=== PATIENT | female | born 1945 | race Caucasian/White ===

== ENCOUNTER 2016-05-08 08:00 | Outpatient (CLI) | payer MEDICARE, OTHER | END 2016-05-08 08:01 | disposition home or self-care (01) | DX: N30.01 Acute cystitis with hematuria (principal) ==

== ENCOUNTER 2017-01-17 16:11 | Outpatient (CLI) | payer MEDICARE, OTHER ==
[2017-01-17 16:40] LABS: BASOPHILS % (AUTO) 0.6 %; EOSINOPHILS # (AUTO) 0.1 10^3/uL (0.0-0.7); EOSINOPHILS % (AUTO) 2.5 %; HCT - HEMATOCRIT 37.7 % (37.0-47.0); HGB - HEMOGLOBIN 12.7 g/dL (12.0-16.0); LYMPHOCYTES # (AUTO) 2.2 10^3/uL (1.5-3.5); LYMPHOCYTES % (AUTO) 36.3 %; MEAN CORPUSCULAR HGB CONC 33.7 g/dL (32.0-36.0); MEAN CORPUSCULAR VOLUME 94.9 fL (81.0-99.0); MEAN PLATELET VOLUME 9.4 fL (7.9-10.8); MONOCYTES # (AUTO) 0.5 10^3/uL (0.0-1.0); MONOCYTES % (AUTO) 7.4 %; NEUTROPHILS # (AUTO) 3.2 10^3/uL (1.5-6.6); NEUTROPHILS % (AUTO) 53.2 %; NUCLEATED RED BLOOD CELLS AUTO 0.1 /100WBC; RED BLOOD COUNT 3.97 10^6/uL (4.20-5.40); RED CELL DISTRIBUTION WIDTH 12.9 % (12.0-15.0); UNCORRECTED WHITE BLOOD COUNT 6.1 x10^3/uL; WHITE BLOOD COUNT 6.1 x10^3/uL (4.8-10.8)
[2017-01-17 16:54] LABS: ALBUMIN/GLOBULIN RATIO 1.4 (1.0-2.2); BILIRUBIN,TOTAL 0.4 mg/dL (0.2-1.0); BUN - BLOOD UREA NITROGEN 17 mg/dL (6-20); CALCIUM 9.9 mg/dL (8.5-10.3); CARBON DIOXIDE - CO2 27 mmol/L (21-32); CHLORIDE 104 mmol/L (101-111); CHOLESTEROL 118 mg/dL; CREATININE 0.7 mg/dL (0.4-1.0); GFR - MDRD 83 (>89); GLUCOSE 142 mg/dL (70-100); HDL CHOLESTEROL 39 mg/dL; LDL/HDL RATIO 1.1 (<4.4); POTASSIUM 4.8 mmol/L (3.5-5.0); SODIUM 138 mmol/L (135-145); TOTAL PROTEIN 6.7 g/dL (6.7-8.2); TRIGLYCERIDES 175 mg/dL; VLDL CHOLESTEROL 35 mg/dL
[2017-01-17 17:28] LABS: HEMOGLOBIN A1C 0.62 g/dL
== END 2017-01-17 16:12 | disposition home or self-care (01) ==
LOC: LAB.R 16:11
PROVIDERS: ATTEND Physician Assistant Medical
DX: Z79.899 Other long term (current) drug therapy (principal); E55.9 Vitamin D deficiency, unspecified; E11.9 Type 2 diabetes mellitus without complications; E78.2 Mixed hyperlipidemia; I10 Essential (primary) hypertension; Z11.59 Encounter for screening for other viral diseases; Z72.89 Other problems related to lifestyle; F32.9 Major depressive disorder, single episode, unspecified
CPT/HCPCS: 80053; 80061; 82306; 83036; 84443; 85025; 86803

== ENCOUNTER 2017-02-22 10:02 | Outpatient (CLI) | payer MEDICARE, OTHER ==
--- NOTE | 2017-02-23 16:45 | Mammography Report ---
DIGITAL BILATERAL SCREENING MAMMOGRAM: 02/22/2017 COMPARISON STUDY: Mammogram of 12/21/2015. BREAST DENSITY: The breasts are heterogeneously dense which may decrease the sensitivity of mammography. TECHNIQUE: Routine CC and MLO projections were obtained of the breasts. FINDINGS: Parenchymal tissue within both breasts is heterogeneously dense, which may lower the sensitivity of mammography; however, there are no dominant masses, suspicious microcalcifications, or secondary signs of malignancy. In comparison to the previous studies, there are no significant changes. ASSESSMENT: NO MAMMOGRAPHIC EVIDENCE OF MALIGNANCY. NO SIGNIFICANT INTERVAL CHANGES. RECOMMENDATION: Screening mammography is recommended annually. BIRADS category 1 - negative. STANDARD QUALIFYING STATEMENTS 1. This examination was reviewed with the aid of Computed-Aided Detection (CAD). 2. A negative or benign imaging report should not delay biopsy if clinically suspicious findings are present. Consider surgical consultation if warranted. More than 5% of cancers are not identified by imaging. 3. Dense breasts may obscure an underlying neoplasm. JOB #: [id number] EXT JOB #: [id number] [place]
== END 2017-02-22 10:03 | disposition home or self-care (01) ==
LOC: DI 10:02
PROVIDERS: ATTEND Physician Assistant Medical
DX: Z12.31 Encounter for screening mammogram for malignant neoplasm of breast (principal)
CPT/HCPCS: 77067

== ENCOUNTER 2017-05-07 08:29 | Outpatient (CLI) | payer MEDICARE, OTHER ==
[2017-05-07 13:45] LABS: HB2 TOTAL 13.2 g/dL; HEMOGLOBIN A1C 0.57 g/dL; HEMOGLOBIN A1C % 6.1 % (4.6-6.2)
== END 2017-05-07 08:30 | disposition home or self-care (01) ==
LOC: LAB.R 08:29
PROVIDERS: ATTEND Physician Assistant Medical
DX: E11.9 Type 2 diabetes mellitus without complications (principal); Z79.899 Other long term (current) drug therapy; R94.6 Abnormal results of thyroid function studies
CPT/HCPCS: 82947; 83036; 84443

== ENCOUNTER 2017-05-17 10:59 | Outpatient (CLI) | payer MEDICARE, OTHER ==
[2017-05-17 14:55] LABS: T4 (THYROXINE) 6.36 ug/dL (6.09-12.23)
[2017-05-17 15:02] LABS: FREE T4 (FREE THYROXINE) 0.63 ng/dL (0.58-1.64)
== END 2017-05-17 11:00 | disposition home or self-care (01) ==
LOC: LAB.R 10:59
PROVIDERS: ATTEND Physician Assistant Medical
DX: R94.6 Abnormal results of thyroid function studies (principal)
CPT/HCPCS: 84432; 84436; 84439; 84481; 86800

== ENCOUNTER 2017-05-26 12:25 | Outpatient (CLI) | payer MEDICARE, OTHER ==
--- NOTE | 2017-05-26 16:26 | Ultrasound Report ---
EXAM: THYROID ULTRASOUND EXAM DATE: 05/26/2017 12:58 PM. CLINICAL HISTORY: ELEVATED TSH. COMPARISON: None. TECHNIQUE: Real time sonographic imaging of the thyroid was performed by the scanning manager. Multiple re presentative static images were saved for review. FINDINGS: THYROID GLAND: Right Lobe: 3.2 x 1.6 x 1.3 cm, volume 4 cc. Normal background echotexture. Right Lobe Nodules: Mid lobe colloid cyst 4 mm is noted. Left Lobe: 3.4 x 1.4 x 1.2 cm, volume 3 cc. Normal background echotexture. Left Lobe Nodules: Colloid cyst superior pole 4 mm. Isthmus: 0.2 cm AP. Isthmic Nodules: Colloid cyst 4 mm. LYMPH NODES: No adenopathy demonstrated in the central or lateral compartment. IMPRESSION: Colloid cysts as above measure up to 4 mm. No solid nodules. Management recommendations are based on 2015 [place] [employer] Management Guidelines for A dult Patients with Thyroid Nodules and Differentiated Thyroid Cancer. [facility] Referring Provider Line: [phone] SITE ID: [id number]
== END 2017-05-26 12:26 | disposition home or self-care (01) ==
LOC: DI 12:25
PROVIDERS: ATTEND Physician Assistant Medical
DX: E04.1 Nontoxic single thyroid nodule (principal)
CPT/HCPCS: 76536

== ENCOUNTER 2017-07-03 08:00 | Outpatient (CLI) | payer MEDICARE, OTHER ==
[2017-07-03 18:47] LABS: THYROID STIMULATING HORMONE 3.81 uIU/mL (0.34-5.60)
[2017-07-03 18:49] LABS: FREE T4 (FREE THYROXINE) 0.71 ng/dL (0.58-1.64)
== END 2017-07-03 08:01 ==
LOC: LAB.R 08:00
PROVIDERS: ATTEND Physician Assistant Medical
DX: R94.6 Abnormal results of thyroid function studies (principal); Z79.899 Other long term (current) drug therapy
CPT/HCPCS: 84439; 84443; 84481; 86376

== ENCOUNTER 2017-09-04 08:00 | Outpatient (CLI) | payer MEDICARE, OTHER ==
[2017-09-04 13:19] LABS: HB2 TOTAL 13.1 g/dL; HEMOGLOBIN A1C 0.6 g/dL; HEMOGLOBIN A1C % 6.3 % (4.6-6.2)
== END 2017-09-04 08:01 | disposition home or self-care (01) ==
LOC: LAB.R 08:00
PROVIDERS: ATTEND Physician Assistant Medical
DX: Z79.899 Other long term (current) drug therapy (principal); E11.9 Type 2 diabetes mellitus without complications
CPT/HCPCS: 82947; 83036

== ENCOUNTER 2017-11-27 10:09 | Outpatient (CLI) | payer MEDICARE, OTHER ==
[2017-11-27 10:32] LABS: BASOPHILS % (AUTO) 0.6 %; EOSINOPHILS # (AUTO) 0.2 10^3/uL (0.0-0.7); EOSINOPHILS % (AUTO) 2.5 %; HGB - HEMOGLOBIN 12.4 g/dL (12.0-16.0); LYMPHOCYTES # (AUTO) 1.9 10^3/uL (1.5-3.5); LYMPHOCYTES % (AUTO) 30.5 %; MEAN CORPUSCULAR HEMOGLOBIN 32.1 pg (27.0-31.0); MEAN CORPUSCULAR HGB CONC 34.4 g/dL (32.0-36.0); MEAN CORPUSCULAR VOLUME 93.2 fL (81.0-99.0); MEAN PLATELET VOLUME 8.2 fL (7.9-10.8); MONOCYTES # (AUTO) 0.6 10^3/uL (0.0-1.0); MONOCYTES % (AUTO) 9.1 %; NEUTROPHILS # (AUTO) 3.6 10^3/uL (1.5-6.6); NEUTROPHILS % (AUTO) 57.3 %; PLT - PLATELET COUNT 197 10^3/uL (130-450); RED BLOOD COUNT 3.87 10^6/uL (4.20-5.40); RED CELL DISTRIBUTION WIDTH 13.3 % (12.0-15.0); WHITE BLOOD COUNT 6.3 x10^3/uL (4.8-10.8)
[2017-11-27 10:49] LABS: ALBUMIN 4.1 g/dL (3.2-5.5); ALBUMIN/GLOBULIN RATIO 1.4 (1.0-2.2); ALKALINE PHOSPHATASE 52 IU/L (42-121); ALT ALANINE AMINOTRANSFERASE 31 IU/L (10-60); AST ASPARTATE AMINOTRANSFERASE 29 IU/L (10-42); BILIRUBIN,TOTAL 0.7 mg/dL (0.2-1.0); BUN - BLOOD UREA NITROGEN 20 mg/dL (6-20); CALCIUM 9.8 mg/dL (8.5-10.3); CARBON DIOXIDE - CO2 27 mmol/L (21-32); CHLORIDE 101 mmol/L (101-111); CREATININE 0.8 mg/dL (0.4-1.0); GFR - MDRD 71 (>89); GLUCOSE 147 mg/dL (70-100); SODIUM 136 mmol/L (135-145); TOTAL PROTEIN 7.1 g/dL (6.7-8.2)
[2017-11-27 10:51] LABS: CRP - C-REACTIVE PROTEIN < 1.0 mg/dL (0-1.0)
--- NOTE | 2017-11-27 15:26 | XRAY Report ---
Reason: KNEE JOIN PAIN, LEFT Procedure Date: 11/27/2017 Accession Number: [id number] / [id number] Procedure: XR - Knee 4 View LT CPT Code: FULL RESULT: EXAM: LEFT KNEE RADIOGRAPHY EXAM DATE: 11/27/2017 10:32 AM. CLINICAL HISTORY: KNEE JOIN PAIN, LEFT. COMPARISON: None. TECHNIQUE: 4 views. FINDINGS: Bones: No fractures or bone lesions. Joints: There is a small effusion. Soft Tissues: No soft tissue swelling. IMPRESSION: Effusion. No acute bone findings. [facility]
== END 2017-11-27 10:10 | disposition home or self-care (01) ==
LOC: LAB 10:09
PROVIDERS: ATTEND Physician Assistant Medical
DX: M25.562 Pain in left knee (principal); M25.462 Effusion, left knee; R10.32 Left lower quadrant pain
CPT/HCPCS: 36415; 80053; 85025; 85651; 86140

== ENCOUNTER 2017-11-28 09:43 | Outpatient (CLI) | payer MEDICARE, OTHER ==
[2017-11-28] MEDS ORDERED: IOPAMIDOL-300 50 ML VIAL ONE ×2 (09:49→10:05)
[2017-11-28] MEDS ORDERED: IOPAMIDOL-300 100 ML VIAL ONE (10:05)
[2017-11-28] MEDS ORDERED: IOPAMIDOL-300 100 ML VIAL IVP ONE (11:15)
[2017-11-28] MEDS ORDERED: IOPAMIDOL-300 50 ML VIAL PO ONE (11:15)
--- NOTE | 2017-11-28 15:18 | CT Report ---
Reason: ABDOMINAL PAIN, LOWER LEFT QUADRANT Procedure Date: 11/28/2017 Accession Number: [id number] Procedure: CT - Abdomen/Pelvis W/ CPT Code: FULL RESULT: EXAM: CT ABDOMEN AND PELVIS EXAM DATE: 11/28/2017 11:11 AM. CLINICAL HISTORY: ABDOMINAL PAIN, LOWER LEFT QUADRANT. COMPARISONS: None. TECHNIQUE: Routine helical CT imaging was performed through the abdomen and pelvis. IV contrast: 100 cc Isovue-300. Enteric contrast: Yes. Reconstructions: Coronal and sagittal. In accordance with CT protocol optimization, one or more of the following dose reduction techniques were utilized for this exam: automated exposure control, adjustment of mA and/or KV based on patient size, or use of iterative reconstructive technique. FINDINGS: Lung Bases: Unremarkable. Liver: Normal contour. No masses. Gallbladder/Bile Ducts: Unremarkable. Spleen: 5 mm low attenuating focus in the spleen is too small to characterize. Pancreas: Normal. Adrenal Glands: Normal. Kidneys: Subcentimeter low attenuating foci in the right kidney are too small to characterize. 4.0 cm, 21 HU, lower pole left renal cyst appears simple, apart from slightly enhancing rim. Mild bilateral perinephric stranding is nonspecific. Peritoneal Cavity/Bowel: No free fluid, free air or adenopathy. No masses or acute inflammatory process. There are colon diverticula without evidence of diverticulitis. Pelvic Organs: Normal. The bladder and visualized pelvic organs are within normal limits. Vasculature: No aneurysms or other significant abnormality. Bones: No bone lesions. IMPRESSION: Left renal cyst has a simple appearance, apart from a slight enhancing rim. I would classify this as a Bosniak 2F cyst, and recommend follow-up evaluation, for example in 6 months. If, however, the patient has left flank pain it would be difficult to completely exclude an abscess. Correlate clinically. Despite the patient's symptoms there is no evidence of diverticulitis. [facility]
== END 2017-11-28 09:44 | disposition home or self-care (01) ==
LOC: DI 09:43
PROVIDERS: ATTEND Physician Assistant Medical
DX: N28.1 Cyst of kidney, acquired (principal); R10.32 Left lower quadrant pain
CPT/HCPCS: 74177; Q9967

== ENCOUNTER 2017-11-29 14:39 | Outpatient (CLI) | payer MEDICARE, OTHER ==
[2017-11-29 17:35] LABS: BILIRUBIN,URINE NEGATIVE (NEGATIVE); GLUCOSE, URINE (UA) NEGATIVE (NEGATIVE); KETONES,URINE (UA) NEGATIVE (NEGATIVE); LEUKOCYTE ESTERASE, URINE NEGATIVE (NEGATIVE); NITRITE,URINE NEGATIVE (NEGATIVE); OCCULT BLOOD,URINE NEGATIVE (NEGATIVE); PROTEIN,URINE NEGATIVE (NEGATIVE); UROBILINOGEN,URINE 0.2 (NORMAL) E.U./dL (NORMAL)
[2017-11-29 17:46] LABS: CLARITY,URINE CLEAR (CLEAR)
== END 2017-11-29 14:40 | disposition home or self-care (01) ==
LOC: LAB.R 14:39
PROVIDERS: ATTEND Physician Assistant Medical
DX: N28.1 Cyst of kidney, acquired (principal); R10.32 Left lower quadrant pain
CPT/HCPCS: 81001; 81003; 87086

== ENCOUNTER 2018-01-23 09:20 | Outpatient (CLI) | payer MEDICARE, OTHER ==
[2018-01-23 17:52] LABS: HB2 TOTAL 13.9 g/dL; HEMOGLOBIN A1C 0.65 g/dL; HEMOGLOBIN A1C % 6.4 % (4.6-6.2)
[2018-01-23 17:55] LABS: CHOLESTEROL 121 mg/dL; HDL CHOLESTEROL 40 mg/dL; LDL CHOLESTEROL,CALCULATED 21 mg/dL; LDL/HDL RATIO 0.5 (<4.4); VLDL CHOLESTEROL 60 mg/dL
== END 2018-01-23 09:21 | disposition home or self-care (01) ==
LOC: LAB.R 09:20
PROVIDERS: ATTEND Physician Assistant Medical
DX: E55.9 Vitamin D deficiency, unspecified (principal); Z79.899 Other long term (current) drug therapy; E11.9 Type 2 diabetes mellitus without complications; E78.2 Mixed hyperlipidemia; R94.6 Abnormal results of thyroid function studies
CPT/HCPCS: 80061; 82306; 83036; 83721; 84443

== ENCOUNTER 2018-02-26 14:10 | Outpatient (CLI) | payer MEDICARE, OTHER ==
--- NOTE | 2018-02-27 08:38 | Mammography Report ---
Reason: MAMMOGRAPHIC SCREENING FOR BREAST CANCER Procedure Date: 02/26/2018 Accession Number: [id number] / [id number] Procedure: [facility] - Screening Mammo w/Johnny CPT Code: FULL RESULT: EXAM: Screening Mammo w/Johnny DATE: 02/26/2018 3:00 PM CLINICAL HISTORY: Screening encounter. History of early menses and history of breast reduction approximately 20 years ago. TECHNIQUE: Bilateral CC and MLO views were obtained. COMPARISON: 02/22/2017 through 09/24/2013. FINDINGS: The breasts demonstrate scattered fibroglandular densities bilaterally. Coarse typically benign calcifications are identified bilaterally. Postsurgical changes are seen in both breasts, typically benign. No suspicious masses, clustered microcalcifications, or regions of architectural distortion are identified. IMPRESSION: Benign findings RECOMMENDATION: Routine annual screening unless otherwise clinically indicated. BIRADS CATEGORY 2: Benign findings STANDARD QUALIFYING STATEMENTS: 1. This examination was not reviewed with the aid of Computer-Aided Detection (CAD). 2. A negative or benign imaging report should not preclude biopsy if clinically suspicious findings are present. 3. Dense breasts may obscure an underlying neoplasm. 4. This examination was reviewed with the aid of 3D breast imaging (tomosynthesis).
== END 2018-02-26 14:11 | disposition home or self-care (01) ==
LOC: DI 14:10
PROVIDERS: ATTEND Physician Assistant Medical
DX: Z12.31 Encounter for screening mammogram for malignant neoplasm of breast (principal)
CPT/HCPCS: 77063; 77067

== ENCOUNTER 2018-02-26 14:11 | Outpatient (CLI) | payer MEDICARE, OTHER ==
--- NOTE | 2018-02-27 09:04 | DEXA Report ---
Reason: POSTMENOPAUSAL Procedure Date: 02/26/2018 Accession Number: [id number] / [id number] Procedure: DEX - Dexa Spine and/or Hip CPT Code: FULL RESULT: EXAM: Dexa Spine and/or Hip DATE: 02/26/2018 2:47 PM CLINICAL HISTORY: POSTMENOPAUSAL TECHNIQUE: Dual energy x-ray absorptiometry (DXA) was performed on a Early[employer] System. Regions measured are the AP Spine, femoral neck, and if needed forearm. COMPARISON: None. In accordance with the International Society for Clinical Densitometry (ISCD) guidelines, data from previous exams may be reanalyzed using current recommendations and techniques. This is done to allow a more accurate basis for comparison with the current study. FINDINGS: The data for the lumbar spine is as follows: BMD (g/cm/cm) T-SCORE Z-SCORE REGION L1 1.398 2.2 3.7 L2 1.311 0.9 2.4 L3 1.371 1.4 2.9 L4 1.429 1.9 3.4 TOTAL 1.382 1.7 3.2 NOTE: All evaluable vertebrae are used for classification The data for the hip is as follows: BMD (g/cm/cm) T-SCORE Z-SCORE REGION Neck 0.946 -0.7 1.0 TOTAL 1.037 0.2 1.6 NOTE: The femoral neck or total proximal femur, whichever is lowest, is used for classification. IMPRESSION: THE WHO CLASSIFICATION BASED ON THE INTERNATIONAL REFERENCE STANDARD IS NORMAL. THE FRACTURE RISK IS NOT INCREASED. RECOMMENDATION: Patients with diagnosis of osteoporosis or osteopenia should have regular bone mineral density assessment. For those eligible for Medicare, routine testing is allowed once every 2 years. Testing frequency can be increased for patients who have rapidly progressing disease or for those who are receiving medical therapy to restore bone mass. COMMENT: World Health Organization (WHO) definitions for osteoporosis and osteopenia: NORMAL BMD: T-score at -1.0 or higher, fracture risk is low OSTEOPENIA BMD: T-score between -1.0 and -2.5, fracture risk is increased. OSTEOPOROSIS BMD: T-score at -2.5 or lower, fracture risk is high. National Osteoporosis Foundation recommends: 1. Obtain adequate dietary calcium (at least 1200 mg per day) and vitamin D (400-800 international units per day). 2. Participate, as appropriate, in regular weightbearing and muscle-strengthening exercise. 3. Avoid tobacco use and reduce alcohol and caffeine intake. 4. For more detailed information see the website at www.NOF.org.
== END 2018-02-26 14:12 | disposition home or self-care (01) ==
LOC: DI 14:11
PROVIDERS: ATTEND Physician Assistant Medical
DX: Z78.0 Asymptomatic menopausal state (principal)
CPT/HCPCS: 77080

== ENCOUNTER 2018-05-08 08:00 | Outpatient (CLI) | payer MEDICARE, OTHER ==
[2018-05-08 14:08] LABS: HB2 TOTAL 14.1 g/dL; HEMOGLOBIN A1C 0.71 g/dL; HEMOGLOBIN A1C % 6.8 % (4.6-6.2)
== END 2018-05-08 23:59 | disposition home or self-care (01) ==
LOC: LAB.R 08:00
PROVIDERS: ATTEND Physician Assistant Medical
DX: E11.9 Type 2 diabetes mellitus without complications (principal); Z79.899 Other long term (current) drug therapy
CPT/HCPCS: 82947; 83036

== ENCOUNTER 2018-10-02 09:34 | Outpatient (CLI) | payer MEDICARE, OTHER ==
[2018-10-02 10:02] LABS: BASOPHILS # (AUTO) 0.1 10^3/uL (0.0-0.1); BASOPHILS % (AUTO) 0.8 %; EOSINOPHILS # (AUTO) 0.2 10^3/uL (0.0-0.7); EOSINOPHILS % (AUTO) 2.6 %; HGB - HEMOGLOBIN 12.3 g/dL (12.0-16.0); LYMPHOCYTES # (AUTO) 1.6 10^3/uL (1.5-3.5); LYMPHOCYTES % (AUTO) 25.7 %; MEAN CORPUSCULAR HEMOGLOBIN 31.9 pg (27.0-31.0); MEAN CORPUSCULAR HGB CONC 33.3 g/dL (32.0-36.0); MEAN CORPUSCULAR VOLUME 95.8 fL (81.0-99.0); MEAN PLATELET VOLUME 10.3 fL (7.9-10.8); MONOCYTES # (AUTO) 0.5 10^3/uL (0.0-1.0); MONOCYTES % (AUTO) 7.7 %; NEUTROPHILS # (AUTO) 3.8 10^3/uL (1.5-6.6); NEUTROPHILS % (AUTO) 62.2 %; PLT - PLATELET COUNT 170 10^3/uL (130-450); RED BLOOD COUNT 3.85 10^6/uL (4.20-5.40); RED CELL DISTRIBUTION WIDTH 13.1 % (12.0-15.0); WHITE BLOOD COUNT 6.1 x10^3/uL (4.8-10.8)
[2018-10-02 10:20] LABS: CALCIUM 9.9 mg/dL (8.5-10.3); CREATININE 0.8 mg/dL (0.4-1.0)
[2018-10-02 10:33] LABS: HB2 TOTAL 13.6 g/dL; HEMOGLOBIN A1C 0.68 g/dL; HEMOGLOBIN A1C % 6.7 % (4.6-6.2)
== END 2018-10-02 09:35 | disposition home or self-care (01) ==
LOC: LAB 09:34
PROVIDERS: ATTEND Family Medicine
DX: E11.9 Type 2 diabetes mellitus without complications (principal); I10 Essential (primary) hypertension; K22.70 Barrett's esophagus without dysplasia; K21.9 Gastro-esophageal reflux disease without esophagitis
CPT/HCPCS: 36415; 80048; 83036; 85025

== ENCOUNTER 2019-09-22 09:10 | Outpatient (CLI) | payer MEDICARE, OTHER ==
[2019-09-22 09:39] LABS: BASOPHILS # (AUTO) 0.1 10^3/uL (0.0-0.1); BASOPHILS % (AUTO) 0.9 %; EOSINOPHILS # (AUTO) 0.2 10^3/uL (0.0-0.7); HGB - HEMOGLOBIN 12.4 g/dL (12.0-16.0); LYMPHOCYTES # (AUTO) 1.7 10^3/uL (1.5-3.5); LYMPHOCYTES % (AUTO) 30.2 %; MEAN CORPUSCULAR HEMOGLOBIN 32.1 pg (27.0-31.0); MEAN CORPUSCULAR HGB CONC 33.3 g/dL (32.0-36.0); MEAN CORPUSCULAR VOLUME 96.4 fL (81.0-99.0); MONOCYTES # (AUTO) 0.4 10^3/uL (0.0-1.0); MONOCYTES % (AUTO) 7.8 %; NEUTROPHILS # (AUTO) 3.3 10^3/uL (1.5-6.6); NEUTROPHILS % (AUTO) 57.2 %; PLT - PLATELET COUNT 185 10^3/uL (130-450); RED BLOOD COUNT 3.86 10^6/uL (4.20-5.40); RED CELL DISTRIBUTION WIDTH 13.3 % (12.0-15.0); WHITE BLOOD COUNT 5.7 x10^3/uL (4.8-10.8)
[2019-09-22 09:47] LABS: ALBUMIN 4.2 g/dL (3.2-5.5); ALBUMIN/GLOBULIN RATIO 1.6 (1.0-2.2); ALKALINE PHOSPHATASE 52 IU/L (42-121); ALT ALANINE AMINOTRANSFERASE 44 IU/L (10-60); AST ASPARTATE AMINOTRANSFERASE 30 IU/L (10-42); BILIRUBIN,TOTAL 0.8 mg/dL (0.2-1.0); BUN - BLOOD UREA NITROGEN 23 mg/dL (6-20); CALCIUM 9.5 mg/dL (8.5-10.3); CARBON DIOXIDE - CO2 25 mmol/L (21-32); CHLORIDE 102 mmol/L (101-111); CHOL/HDL RATIO 2.7 (<4.4); CHOLESTEROL 112 mg/dL; CREATININE 0.9 mg/dL (0.4-1.0); GLUCOSE 181 mg/dL (70-100); HDL CHOLESTEROL 41 mg/dL; LDL CHOLESTEROL,CALCULATED 36 mg/dL; LDL/HDL RATIO 0.9 (<4.4); SODIUM 137 mmol/L (135-145); TOTAL PROTEIN 6.9 g/dL (6.7-8.2); VLDL CHOLESTEROL 35 mg/dL
[2019-09-22 09:49] LABS: HEMOGLOBIN A1C 0.61 g/dL; HEMOGLOBIN A1C % 6.4 % (4.6-6.2)
[2019-09-22 09:59] LABS: THYROID STIMULATING HORMONE 4.73 uIU/mL (0.34-5.60)
[2019-09-22 10:01] LABS: FREE T3 3.36 pg/mL (2.5-3.9); FREE T4 (FREE THYROXINE) 0.64 ng/dL (0.58-1.64)
== END 2019-09-22 09:11 | disposition home or self-care (01) ==
LOC: LAB 09:10
PROVIDERS: ATTEND Family Medicine
DX: E03.9 Hypothyroidism, unspecified (principal); E11.9 Type 2 diabetes mellitus without complications; K22.70 Barrett's esophagus without dysplasia; E78.2 Mixed hyperlipidemia; I10 Essential (primary) hypertension
CPT/HCPCS: 36415; 80053; 80061; 83036; 83721; 84439; 84443; 84481; 85025

== ENCOUNTER 2020-05-05 08:00 | Outpatient (CLI) | payer MEDICARE, OTHER ==
[2020-05-05 10:56] LABS: CALCIUM 10.1 mg/dL (8.5-10.3); CREATININE 0.9 mg/dL (0.4-1.0)
[2020-05-05 11:57] LABS: CREATININE,URINE 125.9 mg/dL; MICROALBUM/CREATININE RATIO,UR 54.8 ug/mg (<30.0); MICROALBUMIN,URINE 6.9 mg/dL (0-300.0)
[2020-05-05 15:04] LABS: HEMOGLOBIN A1c% 6.8 % (4.27-6.07)
== END 2020-05-05 23:59 | disposition home or self-care (01) ==
LOC: LAB 08:00
PROVIDERS: ATTEND Family Medicine
DX: E11.9 Type 2 diabetes mellitus without complications (principal)
CPT/HCPCS: 36415; 80048; 82043; 82570; 83036

== ENCOUNTER 2020-08-25 10:58 | Outpatient (CLI) | payer MEDICARE, OTHER ==
--- NOTE | 2020-08-26 13:49 | Mammography Report ---
BILATERAL DIGITAL SCREENING MAMMOGRAM 3D/2D: 08/25/2020 CLINICAL: Routine screening. Comparison is made to exams dated: 02/26/2018 mammogram, 02/22/2017 mammogram, 12/21/2015 mammogram, mammogram, 09/24/2013 mammogram, [facility] The tissue of both breasts is heterogeneously dense. This may lower the sensitivity of mammography. There are benign calcifications in both breasts. No significant masses, calcifications, or other findings are seen in either breast. There has been no significant interval change. IMPRESSION: BENIGN There is no mammographic evidence of malignancy. A 1 year screening mammogram is recommended. This exam was interpreted at Station ID: [id number]. NOTE: For mammograms, a report in lay terms will be sent to the patient. Approximately 15% of breast malignancies will not be visualized mammographically. In the management of a palpable breast mass, a negative mammogram must not discourage biopsy of a clinically suspicious lesion. Electronically Signed By: Rusty Navas M.D. ddtrina/hussein:08/25/2020 14:48:23 ACR BI-RADS Category 2: Benign Finding(s) 3342F PARENCHYMAL PATTERN: (D) - The breast(s) demonstrate(s) heterogeneously dense fibroglandular erna bains. BI-RADS CATEGORY: (2) - 2 RECOMMENDATION: (ANNUAL) - Recommend routine annual screening mammography. [id number] 1 year screening LATERALITY: (B)
== END 2020-08-25 10:59 | disposition home or self-care (01) ==
LOC: DI 10:58
PROVIDERS: ATTEND Family Medicine
DX: Z12.31 Encounter for screening mammogram for malignant neoplasm of breast (principal)

== ENCOUNTER 2020-11-10 10:04 | Outpatient (CLI) | payer MEDICARE, OTHER ==
[2020-11-10 10:18] LABS: BASOPHILS % (AUTO) 0.6 %; EOSINOPHILS # (AUTO) 0.1 10^3/uL (0.0-0.7); HCT - HEMATOCRIT 36.4 % (37.0-47.0); HGB - HEMOGLOBIN 12.2 g/dL (12.0-16.0); LYMPHOCYTES # (AUTO) 1.3 10^3/uL (1.5-3.5); LYMPHOCYTES % (AUTO) 26.7 %; MEAN CORPUSCULAR HEMOGLOBIN 32.9 pg (27.0-31.0); MEAN CORPUSCULAR HGB CONC 33.5 g/dL (32.0-36.0); MEAN CORPUSCULAR VOLUME 98.1 fL (81.0-99.0); MEAN PLATELET VOLUME 9.6 fL (7.9-10.8); MONOCYTES # (AUTO) 0.4 10^3/uL (0.0-1.0); MONOCYTES % (AUTO) 8.1 %; NEUTROPHILS % (AUTO) 61.6 %; PLT - PLATELET COUNT 163 10^3/uL (130-450); RED BLOOD COUNT 3.71 10^6/uL (4.20-5.40); RED CELL DISTRIBUTION WIDTH 13.2 % (12.0-15.0); WHITE BLOOD COUNT 4.9 x10^3/uL (4.8-10.8)
[2020-11-10 10:37] LABS: ALBUMIN 4.1 g/dL (3.2-5.5); ALBUMIN/GLOBULIN RATIO 1.4 (1.0-2.2); ALKALINE PHOSPHATASE 62 IU/L (42-121); ALT ALANINE AMINOTRANSFERASE 68 IU/L (10-60); AST ASPARTATE AMINOTRANSFERASE 39 IU/L (10-42); BILIRUBIN,TOTAL 0.9 mg/dL (0.2-1.0); BUN - BLOOD UREA NITROGEN 26 mg/dL (6-20); CALCIUM 10.2 mg/dL (8.5-10.3); CARBON DIOXIDE - CO2 25 mmol/L (21-32); CHLORIDE 105 mmol/L (101-111); CHOL/HDL RATIO 2.8 (<4.4); CHOLESTEROL 127 mg/dL; CREATININE 0.8 mg/dL (0.4-1.0); GFR - MDRD 70 (>89); GLUCOSE 197 mg/dL (70-100); HDL CHOLESTEROL 46 mg/dL; LDL CHOLESTEROL,CALCULATED 34 mg/dL; LDL/HDL RATIO 0.7 (<4.4); POTASSIUM 4.2 mmol/L (3.5-5.0); SODIUM 138 mmol/L (135-145); TOTAL PROTEIN 7.1 g/dL (6.7-8.2); TRIGLYCERIDES 237 mg/dL; VLDL CHOLESTEROL 47 mg/dL
[2020-11-10 10:48] LABS: THYROID STIMULATING HORMONE 3.4 uIU/mL (0.34-5.60)
[2020-11-10 11:00] LABS: CREATININE,URINE 152.1 mg/dL; MICROALBUM/CREATININE RATIO,UR 39.4 ug/mg (<30.0)
[2020-11-10 11:49] LABS: ESTIMATED AVERAGE GLUCOSE 154 mg/dL (70-100)
== END 2020-11-10 10:05 | disposition home or self-care (01) ==
LOC: LAB 10:04
PROVIDERS: ATTEND Family Medicine
DX: I10 Essential (primary) hypertension (principal); E03.9 Hypothyroidism, unspecified; E66.3 Overweight; K76.0 Fatty (change of) liver, not elsewhere classified; E11.9 Type 2 diabetes mellitus without complications; F32.9 Major depressive disorder, single episode, unspecified; K22.70 Barrett's esophagus without dysplasia; K21.9 Gastro-esophageal reflux disease without esophagitis; E78.2 Mixed hyperlipidemia
CPT/HCPCS: 36415; 80053; 80061; 82043; 82570; 83036; 83721; 84443; 85025

== ENCOUNTER 2021-05-30 09:58 | Outpatient (CLI) | payer MEDICARE, OTHER ==
[2021-05-30 10:20] LABS: BASOPHILS # (AUTO) 0.1 10^3/uL (0.0-0.1); BASOPHILS % (AUTO) 0.9 %; EOSINOPHILS # (AUTO) 0.1 10^3/uL (0.0-0.7); EOSINOPHILS % (AUTO) 2.4 %; HCT - HEMATOCRIT 34.8 % (37.0-47.0); HGB - HEMOGLOBIN 11.9 g/dL (12.0-16.0); LYMPHOCYTES # (AUTO) 1.4 10^3/uL (1.5-3.5); LYMPHOCYTES % (AUTO) 25.5 %; MEAN CORPUSCULAR HGB CONC 34.2 g/dL (32.0-36.0); MEAN CORPUSCULAR VOLUME 96.4 fL (81.0-99.0); MEAN PLATELET VOLUME 10.1 fL (7.9-10.8); MONOCYTES # (AUTO) 0.4 10^3/uL (0.0-1.0); MONOCYTES % (AUTO) 6.7 %; NEUTROPHILS # (AUTO) 3.4 10^3/uL (1.5-6.6); NEUTROPHILS % (AUTO) 63.9 %; PLT - PLATELET COUNT 175 10^3/uL (130-450); RED BLOOD COUNT 3.61 10^6/uL (4.20-5.40); RED CELL DISTRIBUTION WIDTH 12.9 % (12.0-15.0); WHITE BLOOD COUNT 5.4 x10^3/uL (4.8-10.8)
[2021-05-30 10:28] LABS: CALCIUM 9.8 mg/dL (8.5-10.3); CREATININE 0.9 mg/dL (0.4-1.0); POTASSIUM 3.9 mmol/L (3.5-5.0)
[2021-05-30 12:07] LABS: ESTIMATED AVERAGE GLUCOSE 163 mg/dL (70-100); HEMOGLOBIN A1c% 7.3 % (4.27-6.07)
== END 2021-05-30 09:59 | disposition home or self-care (01) ==
LOC: LAB 09:58
PROVIDERS: ATTEND Family Medicine
DX: K57.30 Diverticulosis of large intestine without perforation or abscess without bleeding (principal); K22.70 Barrett's esophagus without dysplasia; I10 Essential (primary) hypertension; K21.9 Gastro-esophageal reflux disease without esophagitis; E11.9 Type 2 diabetes mellitus without complications
CPT/HCPCS: 36415; 80048; 83036; 85025

== ENCOUNTER 2021-11-17 10:30 | Outpatient (CLI) | payer MEDICARE, OTHER ==
[2021-11-17 10:47] LABS: BASOPHILS % (AUTO) 0.8 %; EOSINOPHILS # (AUTO) 0.1 10^3/uL (0.0-0.7); EOSINOPHILS % (AUTO) 2.1 %; HCT - HEMATOCRIT 38.5 % (37.0-47.0); HGB - HEMOGLOBIN 13.1 g/dL (12.0-16.0); LYMPHOCYTES # (AUTO) 1.5 10^3/uL (1.5-3.5); LYMPHOCYTES % (AUTO) 28.5 %; MEAN CORPUSCULAR VOLUME 93.9 fL (81.0-99.0); MEAN PLATELET VOLUME 10.2 fL (7.9-10.8); MONOCYTES # (AUTO) 0.4 10^3/uL (0.0-1.0); MONOCYTES % (AUTO) 8.4 %; NEUTROPHILS # (AUTO) 3.1 10^3/uL (1.5-6.6); NEUTROPHILS % (AUTO) 59.2 %; PLT - PLATELET COUNT 180 10^3/uL (130-450); WHITE BLOOD COUNT 5.2 x10^3/uL (4.8-10.8)
[2021-11-17 11:02] LABS: CREATININE,URINE 99.2 mg/dL; MICROALBUM/CREATININE RATIO,UR 31.3 ug/mg (<30.0); MICROALBUMIN,URINE 3.1 mg/dL (0-300.0)
[2021-11-17 11:09] LABS: ALBUMIN/GLOBULIN RATIO 1.3 (1.0-2.2); ALKALINE PHOSPHATASE 67 IU/L (42-121); ALT ALANINE AMINOTRANSFERASE 33 IU/L (10-60); AST ASPARTATE AMINOTRANSFERASE 35 IU/L (10-42); BILIRUBIN,TOTAL 0.6 mg/dL (0.2-1.0); BUN - BLOOD UREA NITROGEN 21 mg/dL (6-20); CARBON DIOXIDE - CO2 24 mmol/L (21-32); CHLORIDE 105 mmol/L (101-111); CHOL/HDL RATIO 3.4 (<4.4); CHOLESTEROL 124 mg/dL; GFR - MDRD 54 (>89); GLUCOSE 199 mg/dL (70-100); HDL CHOLESTEROL 36 mg/dL; LDL CHOLESTEROL,CALCULATED 32 mg/dL; LDL/HDL RATIO 0.9 (<4.4); POTASSIUM 4.5 mmol/L (3.5-5.0); SODIUM 139 mmol/L (135-145); TOTAL PROTEIN 7.2 g/dL (6.7-8.2); TRIGLYCERIDES 279 mg/dL; VLDL CHOLESTEROL 56 mg/dL
[2021-11-17 11:20] LABS: THYROID STIMULATING HORMONE 4.09 uIU/mL (0.34-5.60)
[2021-11-17 12:24] LABS: ESTIMATED AVERAGE GLUCOSE 163 mg/dL (70-100); HEMOGLOBIN A1c% 7.3 % (4.27-6.07)
== END 2021-11-17 10:31 | disposition home or self-care (01) ==
LOC: LAB 10:30
PROVIDERS: ATTEND Family Medicine
DX: E03.9 Hypothyroidism, unspecified (principal); E55.9 Vitamin D deficiency, unspecified; K76.0 Fatty (change of) liver, not elsewhere classified; E11.9 Type 2 diabetes mellitus without complications; F32.A Depression, unspecified; K22.70 Barrett's esophagus without dysplasia; E78.2 Mixed hyperlipidemia; I10 Essential (primary) hypertension
CPT/HCPCS: 36415; 80053; 80061; 82043; 82570; 83036; 83721; 84443; 85025

== ENCOUNTER 2022-03-30 14:30 | Outpatient (CLI) | payer MEDICARE, OTHER | END 2022-03-30 14:31 | disposition home or self-care (01) | LOC: MAC.MOP 14:30 | PROVIDERS: ATTEND Family Medicine | DX: R00.0 Tachycardia, unspecified (principal) | CPT/HCPCS: 93242 ==

== ENCOUNTER 2022-04-13 10:30 | Outpatient (CLI) | payer MEDICARE, OTHER | END 2022-04-13 10:31 | disposition home or self-care (01) | LOC: MAC 10:30 | PROVIDERS: ATTEND Family Medicine | DX: I48.91 Unspecified atrial fibrillation (principal); I48.92 Unspecified atrial flutter; I47.1 Supraventricular tachycardia; I47.20 Ventricular tachycardia, unspecified; I49.1 Atrial premature depolarization; I49.3 Ventricular premature depolarization | CPT/HCPCS: 93244 ==

== ENCOUNTER 2022-04-28 08:00 | Outpatient (CLI) | payer MEDICARE, OTHER | END 2022-04-28 23:59 | disposition home or self-care (01) | LOC: LAB.WCP 08:00 | PROVIDERS: ATTEND Family Medicine | DX: I48.91 Unspecified atrial fibrillation (principal); Z79.01 Long term (current) use of anticoagulants ==

== ENCOUNTER 2022-05-02 11:54 | Outpatient (CLI) | payer MEDICARE, OTHER | END 2022-05-02 11:55 | disposition home or self-care (01) | LOC: LAB 11:54 | PROVIDERS: ATTEND Family Medicine | DX: Z79.01 Long term (current) use of anticoagulants (principal); I48.91 Unspecified atrial fibrillation | CPT/HCPCS: 36416; 85610 ==

== ENCOUNTER 2022-05-05 12:51 | Outpatient (CLI) | payer MEDICARE, OTHER | END 2022-05-05 12:52 | disposition home or self-care (01) | LOC: LAB 12:51 | PROVIDERS: ATTEND Family Medicine | DX: Z79.01 Long term (current) use of anticoagulants (principal); I48.91 Unspecified atrial fibrillation | CPT/HCPCS: 36416; 85610 ==

== ENCOUNTER 2022-05-08 13:14 | Outpatient (CLI) | payer MEDICARE, OTHER | END 2022-05-08 13:15 | disposition home or self-care (01) | LOC: LAB 13:14 | PROVIDERS: ATTEND Family Medicine | DX: Z79.01 Long term (current) use of anticoagulants (principal); I48.91 Unspecified atrial fibrillation | CPT/HCPCS: 36416; 85610 ==

== ENCOUNTER 2022-05-12 11:46 | Outpatient (CLI) | payer MEDICARE, OTHER | END 2022-05-12 23:59 | disposition home or self-care (01) | LOC: LAB 11:46 | PROVIDERS: ATTEND Family Medicine | DX: Z79.01 Long term (current) use of anticoagulants (principal); I48.91 Unspecified atrial fibrillation | CPT/HCPCS: 36416; 85610 ==

== ENCOUNTER 2022-05-16 09:54 | Outpatient (CLI) | payer MEDICARE, OTHER ==
[2022-05-16 10:25] LABS: CALCIUM 9.3 mg/dL (8.5-10.3); POTASSIUM 4.1 mmol/L (3.5-5.0)
[2022-05-16 10:31] LABS: CREATININE,URINE 159.9 mg/dL; MICROALBUM/CREATININE RATIO,UR 19.4 ug/mg (<30.0); MICROALBUMIN,URINE 3.1 mg/dL (0-300.0)
[2022-05-16 12:55] LABS: ESTIMATED AVERAGE GLUCOSE 146 mg/dL (70-100); HEMOGLOBIN A1c% 6.7 % (4.27-6.07)
== END 2022-05-16 09:55 | disposition home or self-care (01) ==
LOC: LAB 09:54
PROVIDERS: ATTEND Family Medicine
DX: E11.9 Type 2 diabetes mellitus without complications (principal); E78.1 Pure hyperglyceridemia; R00.0 Tachycardia, unspecified; K22.70 Barrett's esophagus without dysplasia; Z79.01 Long term (current) use of anticoagulants; I48.91 Unspecified atrial fibrillation
CPT/HCPCS: 36415; 80048; 82043; 82570; 83036; 85610

== ENCOUNTER 2022-05-22 11:31 | Outpatient (CLI) | payer MEDICARE, OTHER | END 2022-05-22 11:32 | disposition home or self-care (01) | LOC: LAB 11:31 | PROVIDERS: ATTEND Family Medicine | DX: Z79.01 Long term (current) use of anticoagulants (principal); I48.91 Unspecified atrial fibrillation | CPT/HCPCS: 36416; 85610 ==

== ENCOUNTER 2022-05-25 13:28 | Outpatient (CLI) | payer MEDICARE, OTHER ==
--- NOTE | 2022-05-26 12:05 | Mammography Report ---
BILATERAL DIGITAL SCREENING MAMMOGRAM 3D/2D: 05/25/2022 CLINICAL: Routine screening. Comparison is made to exams dated: 08/25/2020 mammogram, 02/26/2018 mammogram, 02/22/2017 mammogram, mammogram, 09/29/2014 mammogram, and 09/24/2013 mammogram - [facility]. Both breasts are heterogeneously dense, which may obscure small masses (category c / 51-75% glandular tissue). There are benign calcifications in both breasts. No significant masses, calcifications, or other findings are seen in either breast. There has been no significant interval change. IMPRESSION: BENIGN There is no mammographic evidence of malignancy. A 1 year screening mammogram is recommended. Based on the Tyrer Cuzick model (a risk assessment model) the patients lifetime risk is 3.7% and her 10 year risk is 0.0%. According to the ACR, ACS, and NCCN guidelines, an annual breast MRI exam donnie g with mammogram is recommended if the patients lifetime risk is 20% or greater. This exam was interpreted at Station ID: [id number]. NOTE: For mammograms, a report in lay terms will be sent to the patient. Approximately 15% of breast malignancies will not be visualized mammographically. In the management of a palpable breast mass, a negative mammogram must not discourage biopsy of a clinically suspicious lesion. Electronically Signed By: Sam summers/hussein:05/25/2022 17:13:34 letter sent: No_Letter ACR BI-RADS Category 2: Benign Finding(s) 3342F PARENCHYMAL PATTERN: (D) - The breast(s) demonstrate(s) heterogeneously dense fibroglandular erna bains. BI-RADS CATEGORY: (2) - 2 Mammogram [id number] 1 year screening LATERALITY: (B)
== END 2022-05-25 13:29 | disposition home or self-care (01) ==
LOC: DI 13:28
DX: Z12.31 Encounter for screening mammogram for malignant neoplasm of breast (principal)

== ENCOUNTER 2022-05-29 12:05 | Outpatient (CLI) | payer MEDICARE, OTHER | END 2022-05-29 12:06 | disposition home or self-care (01) | LOC: LAB 12:05 | PROVIDERS: ATTEND Family Medicine | DX: Z79.01 Long term (current) use of anticoagulants (principal); I48.91 Unspecified atrial fibrillation | CPT/HCPCS: 36416; 85610 ==

== ENCOUNTER 2022-06-05 10:57 | Outpatient (CLI) | payer MEDICARE, OTHER | END 2022-06-05 10:58 | disposition home or self-care (01) | LOC: LAB 10:57 | PROVIDERS: ATTEND Family Medicine | DX: Z79.01 Long term (current) use of anticoagulants (principal); I48.91 Unspecified atrial fibrillation | CPT/HCPCS: 36416; 85610 ==

== ENCOUNTER 2022-06-12 12:25 | Outpatient (CLI) | payer MEDICARE, OTHER | END 2022-06-12 12:26 | disposition home or self-care (01) | LOC: LAB 12:25 | PROVIDERS: ATTEND Family Medicine | DX: Z79.01 Long term (current) use of anticoagulants (principal); I48.91 Unspecified atrial fibrillation | CPT/HCPCS: 36416; 85610 ==

== ENCOUNTER 2022-06-26 10:11 | Outpatient (CLI) | payer MEDICARE, OTHER | END 2022-06-26 10:12 | disposition home or self-care (01) | LOC: LAB 10:11 | PROVIDERS: ATTEND Family Medicine | DX: Z79.01 Long term (current) use of anticoagulants (principal); I48.91 Unspecified atrial fibrillation | CPT/HCPCS: 36416; 85610 ==

== ENCOUNTER 2022-07-03 11:19 | Outpatient (CLI) | payer MEDICARE, OTHER | END 2022-07-03 11:20 | disposition home or self-care (01) | LOC: LAB 11:19 | PROVIDERS: ATTEND Family Medicine | DX: Z79.01 Long term (current) use of anticoagulants (principal); I48.91 Unspecified atrial fibrillation | CPT/HCPCS: 36416; 85610 ==

== ENCOUNTER 2022-07-10 10:45 | Outpatient (CLI) | payer MEDICARE, OTHER | END 2022-07-10 10:46 | disposition home or self-care (01) | LOC: LAB 10:45 | PROVIDERS: ATTEND Family Medicine | DX: Z79.01 Long term (current) use of anticoagulants (principal); I48.91 Unspecified atrial fibrillation | CPT/HCPCS: 36416; 85610 ==

== ENCOUNTER 2022-07-17 11:08 | Outpatient (CLI) | payer MEDICARE, OTHER | END 2022-07-17 11:09 | disposition home or self-care (01) | LOC: LAB 11:08 | PROVIDERS: ATTEND Family Medicine | DX: Z79.01 Long term (current) use of anticoagulants (principal); I48.91 Unspecified atrial fibrillation | CPT/HCPCS: 36416; 85610 ==

== ENCOUNTER 2022-07-31 09:55 | Outpatient (CLI) | payer MEDICARE, OTHER | END 2022-07-31 09:56 | disposition home or self-care (01) | LOC: LAB 09:55 | PROVIDERS: ATTEND Family Medicine | DX: I48.91 Unspecified atrial fibrillation (principal); Z79.01 Long term (current) use of anticoagulants | CPT/HCPCS: 36416; 85610 ==

== ENCOUNTER 2022-08-08 10:57 | Outpatient (CLI) | payer MEDICARE, OTHER ==
[2022-08-08 11:40] VITALS: BP 108/58
--- NOTE | 2022-08-08 11:40 | SLEEP CARE CONSULTATION ---
Information from patient questionnaire entered by Erlinda Sosa. I have reviewed and concur with the information entered by Erlinda Sosa. This document represents the service I personally performed and the decisions made by me, Sharmaine Thomas ARNP. History of Present Illness Service Date and Time: 08/08/2022 1057 Reason for Visit: New patient Chief Complaint: reports: Snoring, Frequent awakenings at night Date of Onset: 1YR Usual bedtime: 9PM Time it takes to fall asleep: 15MIN Snores at night: Yes Observed to quit breathing while asleep: No Sleeps alone due to snoring: No Number of times waking at night: 3 Reasons for waking at night: reports: Pain, Bathroom Toss, Turn, or Twitch while sleeping: No Recalls having dreams: Yes Usually gets out of bed at: 8AM Feels refreshed in the morning: Yes Morning headache: No Sleepy or fatigued during the day: No Ever fallen asleep while driving: No Takes day naps: No Dreams during day naps: No Prior sleep studies: No Additional HPI information: I had the pleasure of seeing SELENE WALSH today regarding the possibility of her having a sleep disorder. Her current complaints are snoring and frequent night awakenings. She states she was referred here by her plant engineering manager. She was recently diagnosed with atrial fibrillation. She states she has had symptoms for about a year. She states she has been told that she snores and sometimes her will "shake her arm" and she will turn over. He has never told her that he has heard gasping, choking or pauses in breathing. She states she does feel rested when she gets up in the morning. She used to have restless legs but this has not bothered her for many years. She states her plant engineering manager has scheduled an ablation on October 04, 2022 for her atrial fibrillation. 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 Patient is and lives in [place]. Have you smoked in the past 12 months: No Years of smokin Quit date: 1972 Alcohol use: Yes Alcohol amount and frequency: 1 GLASS OF WINE 2-3 NIGHTS A WEEK Caffeine use: Yes Caffeine amount and frequency: 1 CUP A DAY Family History Family history of sleep disordered breathing: Yes Family Hx Sleep Apnea: Mother: Snoring, Sibling: Snoring Allergies and Home Medications Known drug allergies: Yes ( LISTED) Drug allergies reviewed: Yes Home medication list reviewed: Yes (see updated list in EMR) Allergy and home medication list: Allergies Sulfa (Sulfonamide Antibiotics) Allergy (Verified 08/07/22 10:06) Hives Review of Systems Weight gain over past 5 years: 5 Cardiovascular: reports: high blood pressure, irregular heart rate or pulse Gastrointestinal: reports: heartburn, diarrhea Neurological: denies: headaches, head trauma Psychiatric: reports: anxiety, depression Ear/Nose/Throat: reports: sinus problems, dry mouth/throat, tonsillectomy Endocrine: reports: thyroid disease Musculoskeletal: reports: joint pain Immunologic: reports: sneezing, allergies to food or environment (pollen, grasses, etc) Physical Exam Vital signs obtained and entered by: ERLINDA Ramsey MA Blood Pressure: 108/58 (LEFT ARM) Cuff size: regular Heart Rate: 48 O2 Saturation: 95 Height: 5 ft 4 in Weight: 161 lb 3.2 oz Body Mass Index: 27.6 BMI Classification: Overweight Neck circumference: 16 Mouth and throat: narrow oropharynx Soft palate: long Hard palate: normal Uvula: normal Uvula visualization: 25% Mallampati Class III Tongue: enlarged in size with teeth qureshi on lateral edges Tonsils: absent bilaterally Neck: normal w/o lymphadenopathy or thyromegaly Heart: regular rate and rhythm Lungs: clear bilaterally Impression and Plan 1. Suspected Obstructive Sleep Apnea-Hypopnea Syndrome, as suggested by a history of loud and irregular snoring, and frequent night awakenings. She was recently diagnosed with atrial fibrillation. Narrow oropharynx and obesity are common predisposing factors for obstructive sleep apnea-hypopnea syndrome. I recommend proceeding to polysomnography to confirm the diagnosis and to assess severity. If the patient has significant sleep disordered breathing, a manual CPAP titration study will also be performed to find the optimal treatment pressure. I informed the patient of what the sleep studies involve and after some discussion, obtained agreement to proceed. The pathophysiology of obstructive sleep apnea-hypopnea syndrome was discussed with the patient and health risks of cardiovascular and cerebrovascular disease if not treated. Risks of drowsy driving discussed in detail and patient advised to avoid long distance driving and to well puller head at the first sign of drowsiness. Patient agreed to plan. * Schedule polysomnography +- manual CPAP titration study and return in 1-2 weeks after the study to discuss result and initiate therapy. * Avoid long distance driving or driving when feeling sleepy. * Avoid alcohol, sedative and muscle relaxant around bedtime. * Attempt to lose weight. * Review instructions provided by trained office staff on how to prepare for the sleep study. * Return for follow-up after sleep study completed. Counseling Topics: Weight loss health impact Visit Type: In Office Time Spent with Patient (minutes): 31 Provider Statement: I spent 100% of the Face to Face Visit with the patient with greater than 50% spent counseling the patient and coordination of care.
== END 2022-08-08 10:58 | disposition home or self-care (01) ==
LOC: SC 10:57
PROVIDERS: ATTEND Nurse Practitioner Family
DX: G47.8 Other sleep disorders (principal); R06.83 Snoring; E11.9 Type 2 diabetes mellitus without complications; I10 Essential (primary) hypertension; I49.9 Cardiac arrhythmia, unspecified; F32.A Depression, unspecified; E66.3 Overweight; Z68.27 Body mass index [BMI] 27.0-27.9, adult
CPT/HCPCS: 99203; G0463; 99212

== ENCOUNTER 2022-08-17 09:25 | Outpatient (CLI) | payer MEDICARE, OTHER ==
[2022-08-17 09:46] LABS: CALCIUM 9.4 mg/dL (8.5-10.3); POTASSIUM 4.2 mmol/L (3.5-5.0)
[2022-08-17 13:29] LABS: ESTIMATED AVERAGE GLUCOSE 143 mg/dL (70-100); HEMOGLOBIN A1c% 6.6 % (4.27-6.07)
== END 2022-08-17 09:26 | disposition home or self-care (01) ==
LOC: LAB 09:25
PROVIDERS: ATTEND Family Medicine
DX: I48.91 Unspecified atrial fibrillation (principal); E11.9 Type 2 diabetes mellitus without complications
CPT/HCPCS: 36415; 80048; 83036

== ENCOUNTER 2022-08-21 12:16 | Outpatient (CLI) | payer MEDICARE, OTHER | END 2022-08-21 12:17 | disposition home or self-care (01) | LOC: LAB 12:16 | PROVIDERS: ATTEND Family Medicine | DX: Z79.01 Long term (current) use of anticoagulants (principal); I48.91 Unspecified atrial fibrillation | CPT/HCPCS: 36416; 85610 ==

== ENCOUNTER 2022-09-05 19:33 | Outpatient (CLI) | payer MEDICARE, OTHER | END 2022-09-05 19:34 | disposition home or self-care (01) | LOC: SC 19:33 | PROVIDERS: ATTEND Nurse Practitioner Family | DX: G47.33 Obstructive sleep apnea (adult) (pediatric) (principal); G47.61 Periodic limb movement disorder | CPT/HCPCS: 95810 ==

== ENCOUNTER 2022-09-08 11:22 | Outpatient (CLI) | payer MEDICARE, OTHER ==
[2022-09-08 12:01] VITALS: BP 126/72
--- NOTE | 2022-09-08 12:01 | SLEEP CARE CONSULTATION ---
Information from patient questionnaire entered by Padma Sosa. I have reviewed and concur with the information entered by Padma Sosa. This document represents the service I personally performed and the decisions made by , Sharmaine Thomas ARNP. History of Present Illness Service Date and Time: 09/08/2022 1122 Accompanied by: Spouse (Perez) Initial [place] Sleepiness Scale score: 4 (08/08/22) Current [place] Sleepiness Scale score: 4 (09/08/22) Additional HPI information: SELENE WALSH returns for follow up and results of the recently performed polysomnography. Sleep study showed severe obstructive sleep apnea with an average AHI of 45 and dimitri oxygen saturation of 73%. Patient also showed severe periodic leg movements of sleep that contributed to sleep fragmentation. I explained the pathophysiology behind obstructive sleep apnea. We then spent quite a bit of time discussing different treatment options. For mild obstructive sleep apnea, surgery and oral appliance are alternatives to nasal C PAP therapy but in moderate or severe cases, nasal CPAP is the most effective and reliable treatment. I reviewed the impact of weight changes on sleep apnea and strongly recommended losing weight. After some discussion, the patient opted to go with the nasal CPAP therapy. Nasal autoCPAP set at 4-15 cmH20 will be ordered with rationale explained. A manual titration study will be ordered if unable to find optimal pressure with office adjustments. I explained how CPAP machine works and what to expect when using the machine. Using CPAP every night in order to get used to it was emphasized. Patient advised to put CPAP mask on before getting into bed so as not to fall asleep without CPAP. To assist acclimation to CPAP use, it could also be used for a short time during day while reading or watching TV. The patient was instructed to call the CPAP supplier to discuss any mechanical problem that may occur. If the mask given is uncomfortable or is difficult to keep on through the night even with adjustment, contact the CPAP supplier as many will replace with another mask style if notified before 30 days. If snoring or perceives is not getting enough air or too much air from the machine, notify this office. Patient was cautioned about risks of drowsy driving until sleepiness symptoms resolve. i Sleep Study - Results Type of Sleep Study: Polysomnography (COMPLETED 09/05/22) Prior sleep studies: No Polysomnography/Home Sleep Study results: IMPRESSION: The quality of the study is good. The patient had slightly reduced sleep efficiency due to frequent awakenings throughout the night. The sleep architecture was abnormal for sleep fragmentation and reduced amount of time spent in REM and slow wave sleep (N3). Respiratory monitoring showed severe obstructive sleep apneahypopnea (AHI = 45.0) associated with frequent arousals, oxyhemoglobin desaturation and moderate hypoxia (dimitri oxygen saturation of 73%) . Baseline oxygen saturation was normal. The respiratory events occurred inde pendently of sleep stage and body position (supine AHI = 80.3; non-supine = 37.82). Snore was moderate to loud in intensity. There was severe periodic leg movement of sleep contributing to the sleep fragmentation. Cardiac rhythm was normal sinus rhythm without significant arrhythmia. No abnormal behavior (parasomnia) observed during the night. Allergies and Home Medications Known drug allergies: Yes (sulfa) Drug allergies reviewed: Yes Home medication list reviewed: Yes (no changes) Allergy and home medication list: Allergies Sulfa (Sulfonamide Antibiotics) Allergy (Verified 09/07/22 13:57) Hives Review of Systems Review of systems same as previous: Yes (no changes) Physical Exam Vital signs obtained and entered by: PADMA Ramsey MA Blood Pressure: 126/72 (LEFT ARM) Cuff size: regular Heart Rate: 52 O2 Saturation: 95 Height: 5 ft 4 in Weight: 162 lb Body Mass Index: 27.8 BMI Classification: Overweight Impression and Plan 1. Obstructive Sleep Apnea-Hypopnea Syndrome, severe, with lowest oxygen saturation of 73%. Positive pressure therapy could benefit hypertension, arrhythmia (afib), diabetes, anxiety, depression and gastric reflux. As mentioned above, the patient will be started on nasal autoCPAP therapy with pressure set at 4-15 cmH2O. A manual titration study will be completed if unable to find optimal treatment pressure with office adjustments. Compliance guidelines also reviewed. A copy of compliance guidelines will be given for reference at check out. Because the apnea is more severe supine, I instructed to avoid sleeping supine using pillow positioning until able to start CPAP use. 2. Hypoxemia, moderate, with a dimitri oxygen saturation of 73% and 29.5 minutes spent under 90%. Her baseline oxygen saturation was normal with an average oxygen saturation of 92%. 3. Periodic limb movement, severe, that did contribute to the fragmentation of the patients sleep. Periodic limb movement of sleep (PLMS) is characterized by episodes of repetitive limb movements that occur during sleep and usually involve the lower limbs. The etiology is generally unknown. Caffeine can aggravate PLMS and should be avoided. Sleep hygiene methods can also improve sleep as well as lifestyle changes such as regular exercise. Patient was advised that no treatment is needed at this time. If symptoms increase, then further evaluation is indicated. * Nasal auto CPAP therapy, pressure at 4-15 cm H2O. * Attempt to lose weight. * Avoid alcohol consumption near bedtime. * Avoid supine sleep until using CPAP. * The patient is again cautioned about driving until sleepiness completely resolves. * Return one month after CPAP obtained. I will assess response to therapy and compliance at that time. Counseling Topics: Weight loss health impact Visit Type: In Office Time Spent with Patient (minutes): 23 Provider Statement: I spent 100% of the Face to Face Visit with the patient with greater than 50% spent counseling the patient and coordination of care.
== END 2022-09-08 11:23 | disposition home or self-care (01) ==
LOC: SC 11:22
PROVIDERS: ATTEND Nurse Practitioner Family
DX: G47.33 Obstructive sleep apnea (adult) (pediatric) (principal); R09.02 Hypoxemia; G47.61 Periodic limb movement disorder; E66.3 Overweight; Z68.27 Body mass index [BMI] 27.0-27.9, adult
CPT/HCPCS: 99213; G0463; 99212

== ENCOUNTER 2022-09-20 10:33 | Outpatient (CLI) | payer MEDICARE, OTHER | END 2022-09-20 10:34 | disposition home or self-care (01) | LOC: LAB 10:33 | PROVIDERS: ATTEND Family Medicine | DX: Z79.01 Long term (current) use of anticoagulants (principal); I48.91 Unspecified atrial fibrillation | CPT/HCPCS: 36416; 85610 ==

== ENCOUNTER 2022-09-23 11:15 | Outpatient (CLI) | payer MEDICARE, OTHER ==
[2022-09-23 11:43] LABS: CALCIUM 9.3 mg/dL (8.5-10.3); CREATININE 1.1 mg/dL (0.4-1.0); POTASSIUM 4.8 mmol/L (3.5-5.0)
== END 2022-09-23 11:16 | disposition home or self-care (01) ==
LOC: LAB 11:15
PROVIDERS: ATTEND Physician Assistant Medical
DX: I48.0 Paroxysmal atrial fibrillation (principal)
CPT/HCPCS: 36415; 80048

== ENCOUNTER 2022-09-25 07:50 | Emergency (ER) | payer MEDICARE, OTHER ==
[2022-09-25] MEDS: HYDROcod/ACETAM 5/325 MG TABLET PO STA (08:22)
--- NOTE | 2022-09-25 08:38 | CT Report ---
PROCEDURE: HEAD WO INDICATIONS: head injury/eliquis TECHNIQUE: Noncontrast 4.5 mm thick angled axial sections acquired from the foramen magnum to the vertex. For r adiation dose reduction, the following was used: automated exposure control, adjustment of mA and/or kV according to patient size. COMPARISON: None. FINDINGS: Image quality: Excellent. CSF spaces: Basal cisterns are patent. No extra-axial fluid collections. Ventricles are normal in size and shape. Brain: No midline shift. No intracranial masses or hemorrhage. Locke-white matter interface is norm al. Skull and face: Calvarium and visualized facial bones are intact, without suspicious lesions. Front al scalp hematoma without underlying fracture. Sinuses: Mild mucosal thickening of the maxillary sinuses, without air-fluid level. IMPRESSION: Scalp hematoma without underlying fracture. No acute intracranial pathology. Reviewed by: Ramiro Hernandez on 09/25/2022 8:37 AM PDT Approved by: Ramiro Hernandez on 09/25/2022 8:37 AM PDT Station ID: [id number]
--- NOTE | 2022-09-25 08:42 | ED Physician Documentation ---
History of Present Illness - Stated complaint Stated Complaint: GLF/HEAD INJ - Chief complaint Chief Complaint: Trauma Hd/Nk - History obtained from History obtained from: Patient, Family - Additonal information Additional information: The patient comes to the emergency department chief complaint of ground-level fall and head injury. She takes Coumadin. She states she was taking her dogs out and that she tripped and fell, hitting her head on the grass. The patient states that she did not lose consciousness. She had to have her help her get up but when she was up, she was able to ambulate on her own. 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 HEENT: Tonsil/Adenoidectomy Derm: Skin cancer surgery - Present Medications Home Medications: Ambulatory Orders Medication Instructions Recorded Confirmed Amlodipine Besylate [Norvasc] See Rx Instructions .ROUTE .COMPLEX 08/08/22 09/08/22 Cbd/Thc See Rx Instructions .ROUTE .COMPLEX 08/08/22 09/08/22 Cholecalciferol (Vitamin D3) 50 mcg ORAL DAILY 08/08/22 09/25/22 [Vitamin D3] Citalopram Hydrobromide 40 mg ORAL DAILY 08/08/22 09/25/22 [Citalopram HBr] Glimepiride 1 mg ORAL DAILY 08/08/22 09/25/22 Levothyroxine [Synthroid] 25 mcg ORAL DAILY 08/08/22 09/25/22 Losartan Potassium 100 mg ORAL DAILY 08/08/22 09/25/22 Metoprolol Succinate [Toprol Xl] 50 mg ORAL BID 08/08/22 09/25/22 Omeprazole Magnesium 20 mg ORAL DAILY 08/08/22 09/25/22 Rosuvastatin Calcium [Crestor] 10 mg ORAL DAILY 08/08/22 09/25/22 Warfarin Sodium [Coumadin] 6 mg ORAL DAILY 08/08/22 09/25/22 metFORMIN [Glucophage] 500 mg ORAL BID 08/08/22 09/25/22 Flecainide [Tambocar] 50 mg PO DAILY 09/25/22 09/25/22 HYDROcod/ACETAM 5/325 [[place] 5/325] 1 - 2 tablet PO Q6H PRN #7 tablet 09/25/22 - Allergies Allergies/Adverse Reactions: Allergies Allergy/AdvReac Type Severity Reaction Status Date / Time Sulfa (Sulfonamide Allergy Hives Verified 09/25/22 07:57 Antibiotics) - Social History Does the pt smoke?: No Smoking Status: Former smoker Does the pt drink ETOH?: Yes Does the pt have substance abuse?: Yes Substance Use and Type: CBD oil / Products - Immunizations Immunizations are current?: Yes PD ED PE NORMAL - Vitals Vital signs reviewed: Yes - General General: Alert and oriented X 3, No acute distress, Well developed/nourished - HEENT HEENT: PERRL, EOMI, Moist mucous membranes, Other (Large forehead contusion with swelling and overlying abrasion. Abrasion and contusion noted also around patient's right periorbital area. No bony deformity. No evidence of injury lower down on the face.) - Neck Neck: Supple, no meningeal sign - Cardiac Cardiac: RRR, No murmur, Strong equal pulses - Respiratory Respiratory: No respiratory distress, Clear bilaterally - Abdomen Abdomen: Soft, Non tender, Non distended - Derm Derm: Normal color, Warm and dry, No rash - Extremities Extremities: No deformity, No edema, Other (Full range of motion of all 4 extremities without pain. Patient has mild tenderness over her right medial elbow but no deformity.) - Neuro Neuro: Alert and oriented X 3, transportation assistant 2-12 intact, Normal speech - Psych Psych: Normal mood, Normal affect Results - Vitals Vitals: Vital Signs - 24 hr 09/25/22 09/25/22 09/25/22 07:57 08:32 09:07 Temperature 36.2 C L 36.4 C L Heart Rate 54 L 49 L 48 L Respiratory 18 16 16 Rate Blood Pressure 201/66 H 187/66 H 188/69 H O2 Saturation 96 95 96 Oxygen O2 Source Room air - Labs Labs: Laboratory Tests 09/25/22 08:50 PT 26.6 H INR 2.5 H - Rads (name of study) CT head Relevant Findings:: Final report received, See rad report (No intracranial hemorrhage) PD Medical Decision Making - ED course Complexity details: reviewed results, re-evaluated patient, considered differential, d/w patient, d/w family ED course: The patient overall appeared very well. She was sent for CT scan of the head since she is on Coumadin and this did not show any intracranial hemorrhage. Her wounds were dressed and as a courtesy, and INR was drawn since she was supposed to go to the lab today and have one done anyway. This was found to be 2.5. The patient was stable for discharge home. We have discussed the usual indications for return. Departure - Departure Disposition: 01 Home, Self Care Clinical Impression: Closed head injury Qualifiers: Encounter type: initial encounter Qualified Code(s): S09.90XA - Unspecified injury of head, initial encounter Scalp hematoma Qualifiers: Encounter type: initial encounter Qualified Code(s): S00.03XA - Contusion of scalp, initial encounter Condition: Stable Instructions: ED Head Injury Closed, ED Hematoma Prescriptions: HYDROcod/ACETAM 5/325 [[place] 5/325] 1 - 2 tablet PO Q6H PRN #7 tablet PRN Reason: Pain Comments: Your CT scan looks good. You may use ice packs to help bring down the swelling but mostly, it will just take time. You will most likely have bruising that tracks down your face as gravity pulls it down. This will resolve on its own in the next few weeks. You may take Tylenol if needed for headache. Additionally, a small prescription for some stronger pain medicine has been electronically transmitted to the [facility] pharmacy in [place], your pharmacy of choice on record. Your INR has been drawn and sent today. Please follow-up with your primary care physician on these results. Discharge Date/Time: 09/25/22 09:54
[2022-09-25] MEDS: BACITRACIN ZINC OINT 1 PACKET TOP STA (08:44)
[2022-09-25 09:05] LABS: INR 2.5 (0.8-1.2); PT - PROTHROMBIN TIME 26.6 secs (9.9-12.6)
[2022-09-25 09:12] VITALS: BP 188/69
== END 2022-09-25 09:54 | disposition home or self-care (01) ==
LOC: ED 07:50
DX: S09.90XA Unspecified injury of head, initial encounter (principal); S00.03XA Contusion of scalp, initial encounter; W18.30XA Fall on same level, unspecified, initial encounter; Y93.K1 Activity, walking an animal; I10 Essential (primary) hypertension; E78.00 Pure hypercholesterolemia, unspecified; I48.91 Unspecified atrial fibrillation; E11.9 Type 2 diabetes mellitus without complications; E03.9 Hypothyroidism, unspecified; Z79.01 Long term (current) use of anticoagulants; Z79.899 Other long term (current) drug therapy; Z79.84 Long term (current) use of oral hypoglycemic drugs; Z87.891 Personal history of nicotine dependence
CPT/HCPCS: 36415; 70450; 85610; 99283; 99284; A9270

== ENCOUNTER 2022-09-30 12:57 | Outpatient (CLI) | payer MEDICARE, OTHER ==
[2022-09-30 13:20] LABS: BASOPHILS % (AUTO) 0.6 %; EOSINOPHILS # (AUTO) 0.1 10^3/uL (0.0-0.7); HCT - HEMATOCRIT 31.7 % (37.0-47.0); HGB - HEMOGLOBIN 10.5 g/dL (12.0-16.0); LYMPHOCYTES # (AUTO) 1.4 10^3/uL (1.5-3.5); LYMPHOCYTES % (AUTO) 21.3 %; MEAN CORPUSCULAR HEMOGLOBIN 31.3 pg (27.0-31.0); MEAN CORPUSCULAR HGB CONC 33.1 g/dL (32.0-36.0); MEAN CORPUSCULAR VOLUME 94.6 fL (81.0-99.0); MEAN PLATELET VOLUME 10.4 fL (7.9-10.8); MONOCYTES # (AUTO) 0.5 10^3/uL (0.0-1.0); MONOCYTES % (AUTO) 7.8 %; NEUTROPHILS # (AUTO) 4.4 10^3/uL (1.5-6.6); NEUTROPHILS % (AUTO) 67.4 %; PLT - PLATELET COUNT 179 10^3/uL (130-450); RED BLOOD COUNT 3.35 10^6/uL (4.20-5.40); RED CELL DISTRIBUTION WIDTH 14.4 % (12.0-15.0); WHITE BLOOD COUNT 6.5 x10^3/uL (4.8-10.8)
[2022-09-30 13:26] LABS: INR 3.1 (0.8-1.2); PT - PROTHROMBIN TIME 32.7 secs (9.9-12.6)
[2022-09-30 13:33] LABS: CALCIUM 9.4 mg/dL (8.5-10.3); CREATININE 1.1 mg/dL (0.4-1.0); POTASSIUM 4.4 mmol/L (3.5-5.0)
== END 2022-09-30 12:58 | disposition home or self-care (01) ==
LOC: LAB 12:57
PROVIDERS: ATTEND Physician Assistant Medical
DX: I48.0 Paroxysmal atrial fibrillation (principal)
CPT/HCPCS: 36415; 80048; 85025; 85610

== ENCOUNTER 2022-10-02 13:36 | Outpatient (CLI) | payer MEDICARE, OTHER | END 2022-10-02 13:37 | disposition home or self-care (01) | LOC: LAB 13:36 | PROVIDERS: ATTEND Family Medicine | DX: Z79.01 Long term (current) use of anticoagulants (principal); I48.91 Unspecified atrial fibrillation | CPT/HCPCS: 36416; 85610 ==

== ENCOUNTER 2022-10-30 11:37 | Outpatient (CLI) | payer MEDICARE, OTHER | END 2022-10-30 11:38 | disposition home or self-care (01) | LOC: LAB 11:37 | PROVIDERS: ATTEND Family Medicine | DX: Z79.01 Long term (current) use of anticoagulants (principal); I48.91 Unspecified atrial fibrillation | CPT/HCPCS: 36416; 85610 ==

== ENCOUNTER 2022-11-24 10:29 | Outpatient (CLI) | payer MEDICARE, OTHER ==
[2022-11-24 10:55] LABS: CALCIUM 9.8 mg/dL (8.5-10.3); POTASSIUM 4.5 mmol/L (3.5-4.5)
[2022-11-24 11:20] LABS: ESTIMATED AVERAGE GLUCOSE 131 mg/dL (70-100); HEMOGLOBIN A1c% 6.2 % (4.27-6.07)
== END 2022-11-24 10:30 | disposition home or self-care (01) ==
LOC: LAB 10:29
PROVIDERS: ATTEND Family Medicine
DX: I48.91 Unspecified atrial fibrillation (principal); E11.9 Type 2 diabetes mellitus without complications; Z79.01 Long term (current) use of anticoagulants
CPT/HCPCS: 36415; 80048; 83036; 85610

== ENCOUNTER 2022-12-04 10:20 | Outpatient (CLI) | payer MEDICARE, OTHER | END 2022-12-04 10:21 | disposition home or self-care (01) | LOC: LAB 10:20 | PROVIDERS: ATTEND Family Medicine | DX: Z79.01 Long term (current) use of anticoagulants (principal); I48.91 Unspecified atrial fibrillation | CPT/HCPCS: 36416; 85610 ==

== ENCOUNTER 2022-12-05 11:26 | Outpatient (CLI) | payer MEDICARE, OTHER ==
--- NOTE | 2022-12-05 12:12 | Sleep Patient Instructions ---
Sleep Center Visit Summary - Patient Visit Information Reason for Visit: First compliance followup for PAP therapy - Patient Instructions Additional Instructions: You were here for follow up of CPAP therapy. You will be continued on CPAP therapy with pressure at 11-14 cmH2O. Please let us know if the pressure change is uncomfortable and we can make further adjustments of the pressure. You should follow up with sleep care in 1-2 months. You may contact us sooner for any questions or concerns. - Clinic Information Contact: [facility] [address] [place] [address] [email or web address] T: [phone]
[2022-12-05 12:16] VITALS: BP 162/69; O2SAT 94
--- NOTE | 2022-12-05 12:16 | SLEEP CARE CONSULTATION ---
Information from patient questionnaire entered by Padma Sosa. I have reviewed and concur with the information entered by Padma Sosa. This document represents the service I personally performed and the decisions made by , Sharmaine Thomas ARNP. History of Present Illness Service Date and Time: 12/05/2022 1126 Previous diagnosis: Severe, Obstructive Sleep Apnea-Hypopnea Syndrome AHI: 45 (2022) Reason for follow up: first compliance Equipment type: CPAP (RESMED 11, s/u 08/2022) Equipment obtained from: Other ([facility]; getting supplies) Mask style: Nasal (over the nose) Mask brand: [id number] [place] Backup mask available: No (will keep old mask when replaced) Last cushion change: 2 weeks Prior sleep studies: No Type of Sleep Study: Polysomnography (COMPLETED 09/05/22) HPI additional information: SELENE WALSH was diagnosed to have severe, AHI 45, obstructive sleep apnea- hypopnea syndrome and returned today for CPAP therapy first compliance follow- up. Sleep Study - Results Type of Sleep Study: Polysomnography (COMPLETED 09/05/22) Prior sleep studies: No CPAP Compliance Data - Data Reviewed with Patient Average duration of nightly device use: 8 HRS 22 MINS Compliance rate %: 100 (11/01/22-11/30/22; 30 days used) Current pressure setting (cmH2O): 4-15 (median 9.6, avg 11.4, max 12.6) Average residual AHI: 5.5 Central apnea: 0.1 Obstructive apnea: 4.1 Hypopnea: 1.2 Average large leak: 1.4 L/min Subjective Patient concerns: reports: mask discomfort (minimal, no issue). denies: aerophagia, air blowing in eyes, mask leak noise, condensation in mask/hose, nasal congestion, dry mouth, nose, throat, epistaxis Observed to snore while using device: No Current pressure setting perceived as: comfortable On therapy, patient: reports: sleeping better, awakening more refreshed, being more awake and alert during the day, more rested overall. denies: drowsiness while driving Initial Brewster Sleepiness Scale score: 4 (08/08/22) Current Brewster Sleepiness Scale score: 4 Allergies and Home Medications Known drug allergies: Yes (as listed) Drug allergies reviewed: Yes Home medication list reviewed: Yes (no changes) Allergy and home medication list: Allergies Sulfa (Sulfonamide Antibiotics) Allergy (Verified 12/04/22 08:44) Hives Review of Systems Review of systems same as previous: Yes (no changes) Physical Exam Vital signs obtained and entered by: Sharmaine Law NP Blood Pressure: 162/69 (?whitecoat) Cuff size: wrist (left) Heart Rate: 58 O2 Saturation: 94 Height: 5 ft 4 in Weight: 166 lb 12.8 oz Body Mass Index: 28.6 BMI Classification: Overweight Impression and Plan 1. Obstructive Sleep Apnea-Hypopnea Syndrome, severe, with good treatment compliance and fair apnea control with minimal elevation of residual AHI at 5.5. On CPAP therapy, the patient has better sleep quality and is more rested overall. She states things have been going well and she has been tolerating the CPAP. Patient has significant improvement of their sleep apnea and is satisfied with current CPAP therapy. Her is happy that she is no longer snoring. The patients pressure will be changed to autoCPAP 11-14 cmH20 for elevation of residual AHI. Patient advised to contact me if pressure change is uncomfortable so that it can be adjusted. Goals for apnea control discussed. Patient's apnea severity and rationale for treatment to reduce apnea, improve sleep quality and reduce cardiovascular and cerebrovascular events was reviewed. I also reviewed the benefit of consistent device use of CPAP for hypertension, arrhythmia (Afib), diabetes, gastric reflux, depression and anxiety. 2. Overweight, unspecified. Currently patients BMI is 28.6. Obesity increases the risk of apnea, CPAP pressure requirements and overall health risks especially cardiovascular and diabetes. Thus patient is advised to lose weight. * Change auto CPAP pressure to 11-14 cmH2O * Notify me if snoring with mask or feeling that the pressure is too much or too little * Attempt to lose weight * Call this office if any problems using CPAP * Return for follow up in 1-2 months, or sooner if concerns arise Counseling Topics: Spare mask, Weight loss health impact Follow up with Sleep Care in: 1-2 months Visit Type: In Office Time Spent with Patient (minutes): 20 Provider Statement: I spent 100% of the Face to Face Visit with the patient with greater than 50% spent counseling the patient and coordination of care.
== END 2022-12-05 11:27 | disposition home or self-care (01) ==
LOC: SC 11:26
PROVIDERS: ATTEND Nurse Practitioner Family
DX: G47.33 Obstructive sleep apnea (adult) (pediatric) (principal); E66.3 Overweight; Z68.28 Body mass index [BMI] 28.0-28.9, adult
CPT/HCPCS: 99213; G0463; 99212

== ENCOUNTER 2022-12-24 15:30 | Emergency (ER) | payer MEDICARE, OTHER ==
[2022-12-24 15:46] VITALS: O2SAT 96
[2022-12-24] MEDS ORDERED: DEXAMETHASONE 10 MG/ML VIAL IVP STA (15:54)
[2022-12-24] MEDS ORDERED: SODIUM CHLORIDE 0.9% 1,000 ML IV STA (15:54)
[2022-12-24] MEDS ORDERED: ACETAMINOPHEN 500 MG TABLET PO STA (16:00)
--- NOTE | 2022-12-24 16:00 | ED Physician Documentation ---
History of Present Illness - Stated complaint Stated Complaint: FEVER/COUGH/BODY PX - Chief complaint Chief Complaint: Fever - History obtained from History obtained from: Patient - Additonal information Additional information: 77-year-old woman with history of A-fib status post ablation and has not had A- fib in several months now still maintained on warfarin and flecainide presents with febrile illness for the last 36 to 48 hours marked by headache, sore throat, body aches, nonproductive cough, fatigue. She had some friends in her knitting group that were sick but no specific diagnosis and she could not take a COVID test at home because her COVID test were . 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 HEENT: Tonsil/Adenoidectomy Derm: Skin cancer surgery - Present Medications Home Medications: Ambulatory Orders Medication Instructions Recorded Confirmed Amlodipine Besylate [Norvasc] See Rx Instructions .ROUTE .COMPLEX 08/08/22 09/08/22 Cbd/Thc See Rx Instructions .ROUTE .COMPLEX 08/08/22 09/08/22 Cholecalciferol (Vitamin D3) 50 mcg ORAL DAILY 08/08/22 09/25/22 [Vitamin D3] Citalopram Hydrobromide 40 mg ORAL DAILY 08/08/22 09/25/22 [Citalopram HBr] Glimepiride 1 mg ORAL DAILY 08/08/22 09/25/22 Levothyroxine [Synthroid] 25 mcg ORAL DAILY 08/08/22 09/25/22 Losartan Potassium 100 mg ORAL DAILY 08/08/22 09/25/22 Metoprolol Succinate [Toprol Xl] 50 mg ORAL BID 08/08/22 09/25/22 Omeprazole Magnesium 20 mg ORAL DAILY 08/08/22 09/25/22 Rosuvastatin Calcium [Crestor] 10 mg ORAL DAILY 08/08/22 09/25/22 Warfarin Sodium [Coumadin] 6 mg ORAL DAILY 08/08/22 09/25/22 metFORMIN [Glucophage] 500 mg ORAL BID 08/08/22 09/25/22 Flecainide [Tambocar] 50 mg PO DAILY 09/25/22 09/25/22 HYDROcod/ACETAM 5/325 [[place] 5/325] 1 - 2 tablet PO Q6H PRN #7 tablet 09/25/22 - Allergies Allergies/Adverse Reactions: Allergies Allergy/AdvReac Type Severity Reaction Status Date / Time Sulfa (Sulfonamide Allergy Hives Verified 12/24/22 15:38 Antibiotics) - Social History Does the pt smoke?: No Smoking Status: Former smoker Does the pt drink ETOH?: Yes Does the pt have substance abuse?: Yes - Immunizations Immunizations are current?: Yes PD ED PE NORMAL - Vitals Vital signs reviewed: Yes (Febrile with otherwise relatively unremarkable vital signs save hypertensio) - General General: Alert and oriented X 3 - HEENT HEENT: PERRL, EOMI, Pharynx benign - Neck Neck: Supple, no meningeal sign, No bony TTP - Cardiac Cardiac: RRR, No murmur - Respiratory Respiratory: No respiratory distress, Clear bilaterally - Abdomen Abdomen: Non tender - Derm Derm: No rash - Neuro Neuro: Alert and oriented X 3, Normal speech Results - Vitals Vitals: Vital Signs - 24 hr 12/24/22 12/24/22 15:38 15:42 Temperature 39.1 C H 39.1 C H Heart Rate 69 69 Respiratory 20 20 Rate Blood Pressure 174/60 H 174/60 H O2 Saturation 96 96 Oxygen O2 Source Room air - Labs Labs: Laboratory Tests 12/24/22 12/24/22 12/24/22 15:46 16:08 16:08 WBC 7.1 RBC 3.36 L Hgb 10.6 L Hct 31.8 L MCV 94.6 MCH 31.5 H MCHC 33.3 RDW 14.1 Plt Count 136 MPV 10.4 Neut # (Auto) 5.8 Lymph # (Auto) 0.6 L [place] # (Auto) 0.7 Eos # (Auto) 0.0 Baso # (Auto) 0.0 Absolute Nucleated RBC 0.00 Nucleated RBC % 0.0 PT 32.2 H INR 3.2 H Sodium Potassium Chloride Carbon Dioxide Anion Gap BUN Creatinine Estimated GFR (MDRD) Glucose Calcium Total Bilirubin AST ALT Alkaline Phosphatase Total Protein Albumin Globulin Albumin/Globulin Ratio Nasal Adenovirus (PCR) NOT DETECTED Nasal B. parapertussis DNA (PCR) NOT DETECTED Nasal Coronavir 229E PCR NOT DETECTED Nasal Coronavir HKU1 PCR NOT DETECTED Nasal Coronavir NL63 PCR NOT DETECTED Nasal Coronavir OC43 PCR NOT DETECTED Nasal Enterovir/Rhinovir PCR NOT DETECTED Nasal Influenza B PCR NOT DETECTED Nasal Influenza A PCR NOT DETECTED Nasal Parainfluen 1 PCR NOT DETECTED Nasal Parainfluen 2 PCR NOT DETECTED Nasal Parainfluen 3 PCR NOT DETECTED Nasal Parainfluen 4 PCR NOT DETECTED Nasal RSV (PCR) NOT DETECTED Nasal B.pertussis DNA PCR NOT DETECTED Nasal C.pneumoniae (PCR) NOT DETECTED Cem Human Metapneumo PCR NOT DETECTED Nasal M.pneumoniae (PCR) NOT DETECTED Nasal SARS-CoV-2 (PCR) DETECTED A 12/24/22 16:08 WBC RBC Hgb Hct MCV MCH MCHC RDW Plt Count MPV Neut # (Auto) Lymph # (Auto) [place] # (Auto) Eos # (Auto) Baso # (Auto) Absolute Nucleated RBC Nucleated RBC % PT INR Sodium 133 L Potassium 4.1 Chloride 102 Carbon Dioxide 25 Anion Gap 6.0 BUN 19 Creatinine 1.0 Estimated GFR (MDRD) 54 L Glucose 124 H Calcium 9.5 Total Bilirubin 0.6 AST 29 ALT 30 Alkaline Phosphatase 68 Total Protein 6.3 L Albumin 3.9 Globulin 2.4 Albumin/Globulin Ratio 1.6 Nasal Adenovirus (PCR) Nasal B. parapertussis DNA (PCR) Nasal Coronavir 229E PCR Nasal Coronavir HKU1 PCR Nasal Coronavir NL63 PCR Nasal Coronavir OC43 PCR Nasal Enterovir/Rhinovir PCR Nasal Influenza B PCR Nasal Influenza A PCR Nasal Parainfluen 1 PCR Nasal Parainfluen 2 PCR Nasal Parainfluen 3 PCR Nasal Parainfluen 4 PCR Nasal RSV (PCR) Nasal B.pertussis DNA PCR Nasal C.pneumoniae (PCR) Cem Human Metapneumo PCR Nasal M.pneumoniae (PCR) Nasal SARS-CoV-2 (PCR) - Rads (name of study) Single view chest x-ray is unremarkable Relevant Findings:: Final report received, EMP independent interpretation of test PD Medical Decision Making - ED course ED course: 77-year-old woman presents with fever, body aches, benign exam with normal pulse oximetry. She was febrile here. Work-up demonstrates CBC showing total normal white count with lymphopenia, INR and warfarin is 3.2, chemistries are relatively unremarkable, and [employer] respiratory panel positive for COVID. She is an appropriate candidate for antiviral therapy, molnupiravir was chosen given medication interactions with paxlovid, specifically and especially her flecainide which I would not want to stop suddenly. Departure - Departure Disposition: 01 Home, Self Care Clinical Impression: COVID-19 Fever Qualifiers: Fever type: due to other condition Qualified Code(s): R50.81 - Fever presenting with conditions classified elsewhere Condition: Good Record reviewed to determine appropriate education?: Yes Instructions: ED Viral Syndrome Comments: You were seen today for symptomatic COVID, you are pulse oximetry was normal and really nothing else to speak of on lab work-up. You administered IV fluids and a steroid which should help with your symptoms. And also an antiviral drug called molnupiravir given that the more common antiviral drug, paxlovid, is contraindicated with flecainide. Recommend your pickle pumper a pulse oximeter at the drugstore and seek reevaluation if it is persistently below 90%. Return for other new or worsening symptoms. You should quarantine for the next 10 days or so, and you might consider a home COVID test prior to breaking quarantine to make sure you are no longer severely contagious. Tylenol and plenty of fluids for the aches and pains and general symptoms. Forms: PCP List
[2022-12-24 16:14] LABS: BASOPHILS % (AUTO) 0.4 %; EOSINOPHILS % (AUTO) 0.4 %; HCT - HEMATOCRIT 31.8 % (37.0-47.0); HGB - HEMOGLOBIN 10.6 g/dL (12.0-16.0); LYMPHOCYTES # (AUTO) 0.6 10^3/uL (1.5-3.5); LYMPHOCYTES % (AUTO) 7.8 %; MEAN CORPUSCULAR HEMOGLOBIN 31.5 pg (27.0-31.0); MEAN CORPUSCULAR HGB CONC 33.3 g/dL (32.0-36.0); MEAN CORPUSCULAR VOLUME 94.6 fL (81.0-99.0); MEAN PLATELET VOLUME 10.4 fL (7.9-10.8); MONOCYTES # (AUTO) 0.7 10^3/uL (0.0-1.0); MONOCYTES % (AUTO) 9.8 %; NEUTROPHILS # (AUTO) 5.8 10^3/uL (1.5-6.6); NEUTROPHILS % (AUTO) 81.3 %; PLT - PLATELET COUNT 136 10^3/uL (130-450); RED BLOOD COUNT 3.36 10^6/uL (4.20-5.40); RED CELL DISTRIBUTION WIDTH 14.1 % (12.0-15.0); WHITE BLOOD COUNT 7.1 x10^3/uL (4.8-10.8)
--- NOTE | 2022-12-24 16:15 | XRAY Report ---
PROCEDURE: Chest 1 View X-Ray INDICATIONS: fever cough TECHNIQUE: One view of the chest was acquired. COMPARISON: None. FINDINGS: Surgical changes and devices: None. Lungs and pleura: No pleural effusions or pneumothorax. Lungs are clear. Mediastinum: Mediastinal contours appear normal. Heart size is normal. Bones and chest wall: No suspicious bony lesions. Age-appropriate degenerative changes are seen. O verlying soft tissues appear unremarkable. IMPRESSION: No focal infiltrates are seen. Reviewed by: Jose White MD on 12/24/2022 3:14 PM AKDT Approved by: Jose White MD on 12/24/2022 3:14 PM SEAN Station ID: [id number]
[2022-12-24 16:28] LABS: ALBUMIN 3.9 g/dL (3.2-5.5); ALBUMIN/GLOBULIN RATIO 1.6 (1.0-2.2); BILIRUBIN,TOTAL 0.6 mg/dL (0.2-1.0); CALCIUM 9.5 mg/dL (8.5-10.3); POTASSIUM 4.1 mmol/L (3.5-4.5); TOTAL PROTEIN 6.3 g/dL (6.4-8.9)
[2022-12-24 16:31] LABS: INR 3.2 (0.8-1.2); PT - PROTHROMBIN TIME 32.2 secs (9.9-12.6)
[2022-12-24 16:38] LABS: B. PARAPERTUSSIS- RESP PCR PAN NOT DETECTED; B. PERTUSSIS- RESP PCR PANEL NOT DETECTED; C. PNEUMONIAE- RESP PCR PANEL NOT DETECTED; CORONAVIRUS 229E-RESP PCR NOT DETECTED; CORONAVIRUS HKU1-RESP PCR NOT DETECTED; CORONAVIRUS NL63-RESP PCR NOT DETECTED; CORONAVIRUS OC43-RESP PCR NOT DETECTED; HUMAN METAPNEUMOVIRUS NOT DETECTED; INFLUENZA A- RESP PCR PANEL NOT DETECTED; INFLUENZA B - RESP PCR PANEL NOT DETECTED; M. PNEUMONIAE- RESP PCR PANEL NOT DETECTED; PARAINFLUENZA VIRUS 1 NOT DETECTED; PARAINFLUENZA VIRUS 2 NOT DETECTED; PARAINFLUENZA VIRUS 3 NOT DETECTED; PARAINFLUENZA VIRUS 4 NOT DETECTED; RHINOVIRUS/ENTEROVIRUS NOT DETECTED; RSV- RESP PCR PANEL NOT DETECTED
[2022-12-24 16:41] LABS: SARS-CoV-2 -RESP PCR PANEL DETECTED
[2022-12-24] MEDS ORDERED: MOLNUPIRAVIR PREPACK PO STA (16:48)
[2022-12-24 17:43] VITALS: BP 150/60
== END 2022-12-24 17:30 | disposition home or self-care (01) ==
LOC: ED 15:30
DX: U07.1 COVID-19 (principal); I48.91 Unspecified atrial fibrillation; Z79.01 Long term (current) use of anticoagulants; E11.9 Type 2 diabetes mellitus without complications; Z79.84 Long term (current) use of oral hypoglycemic drugs; Z87.891 Personal history of nicotine dependence
CPT/HCPCS: 36415; 71045; 80053; 85025; 85610; 87633; 96374; 99284; A9270; J3490

== ENCOUNTER 2023-01-03 11:24 | Outpatient (CLI) | payer MEDICARE, OTHER | END 2023-01-03 11:25 | disposition home or self-care (01) | LOC: LAB 11:24 | PROVIDERS: ATTEND Family Medicine | DX: Z79.01 Long term (current) use of anticoagulants (principal); I48.91 Unspecified atrial fibrillation | CPT/HCPCS: 36416; 85610 ==

== ENCOUNTER 2023-01-31 10:46 | Outpatient (CLI) | payer MEDICARE, OTHER | END 2023-01-31 10:47 | disposition home or self-care (01) | LOC: LAB 10:46 | PROVIDERS: ATTEND Family Medicine | DX: Z79.01 Long term (current) use of anticoagulants (principal); I48.91 Unspecified atrial fibrillation | CPT/HCPCS: 36416; 85610 ==

== ENCOUNTER 2023-03-01 10:22 | Outpatient (CLI) | payer MEDICARE, OTHER | END 2023-03-01 10:23 | disposition home or self-care (01) | LOC: LAB 10:22 | PROVIDERS: ATTEND Family Medicine | DX: I48.91 Unspecified atrial fibrillation (principal); Z79.01 Long term (current) use of anticoagulants | CPT/HCPCS: 36416; 85610 ==

== ENCOUNTER 2023-04-06 11:27 | Outpatient (CLI) | payer MEDICARE, OTHER | END 2023-04-06 11:28 | disposition home or self-care (01) | LOC: LAB 11:27 | PROVIDERS: ATTEND Family Medicine | DX: I48.91 Unspecified atrial fibrillation (principal); Z79.01 Long term (current) use of anticoagulants | CPT/HCPCS: 36416; 85610 ==

== ENCOUNTER 2023-04-12 10:35 | Outpatient (CLI) | payer MEDICARE, OTHER ==
[2023-04-12 10:50] LABS: BASOPHILS % (AUTO) 0.7 %; EOSINOPHILS # (AUTO) 0.1 10^3/uL (0.0-0.7); EOSINOPHILS % (AUTO) 2.5 %; HCT - HEMATOCRIT 38.3 % (37.0-47.0); HGB - HEMOGLOBIN 12.1 g/dL (12.0-16.0); LYMPHOCYTES # (AUTO) 1.6 10^3/uL (1.5-3.5); LYMPHOCYTES % (AUTO) 28.5 %; MEAN CORPUSCULAR HEMOGLOBIN 30.9 pg (27.0-31.0); MEAN CORPUSCULAR HGB CONC 31.6 g/dL (32.0-36.0); MEAN PLATELET VOLUME 10.3 fL (7.9-10.8); MONOCYTES # (AUTO) 0.5 10^3/uL (0.0-1.0); MONOCYTES % (AUTO) 8.7 %; NEUTROPHILS # (AUTO) 3.3 10^3/uL (1.5-6.6); NEUTROPHILS % (AUTO) 58.9 %; PLT - PLATELET COUNT 186 10^3/uL (130-450); RED BLOOD COUNT 3.91 10^6/uL (4.20-5.40); RED CELL DISTRIBUTION WIDTH 13.3 % (12.0-15.0); WHITE BLOOD COUNT 5.6 x10^3/uL (4.8-10.8)
[2023-04-12 11:04] LABS: ALBUMIN 4.1 g/dL (3.2-5.5); ALBUMIN/GLOBULIN RATIO 1.4 (1.0-2.2); ALKALINE PHOSPHATASE 70 IU/L (42-121); ALT ALANINE AMINOTRANSFERASE 49 IU/L (10-60); AST ASPARTATE AMINOTRANSFERASE 48 IU/L (10-42); BILIRUBIN,TOTAL 0.4 mg/dL (0.2-1.0); BUN - BLOOD UREA NITROGEN 18 mg/dL (6-20); CALCIUM 9.6 mg/dL (8.5-10.3); CARBON DIOXIDE - CO2 28 mmol/L (21-32); CHLORIDE 105 mmol/L (101-111); CHOL/HDL RATIO 3.3 (<4.4); CHOLESTEROL 124 mg/dL; GFR - MDRD 54 (>89); GLUCOSE 170 mg/dL (74-104); HDL CHOLESTEROL 38 mg/dL; LDL CHOLESTEROL,CALCULATED 33 mg/dL; LDL/HDL RATIO 0.9 (<4.4); POTASSIUM 4.5 mmol/L (3.5-4.5); SODIUM 138 mmol/L (135-145); TOTAL PROTEIN 7.1 g/dL (6.4-8.9); TRIGLYCERIDES 266 mg/dL (48-352); VLDL CHOLESTEROL 53 mg/dL
[2023-04-12 11:18] LABS: THYROID STIMULATING HORMONE 5.39 uIU/mL (0.34-5.60)
[2023-04-12 11:58] LABS: ESTIMATED AVERAGE GLUCOSE 143 mg/dL (70-100); HEMOGLOBIN A1c% 6.6 % (4.27-6.07)
[2023-04-12 13:01] LABS: CREATININE,URINE 119.8 mg/dL; MICROALBUM/CREATININE RATIO,UR 102.7 ug/mg (<30.0); MICROALBUMIN,URINE 12.3 mg/dL
== END 2023-04-12 10:36 | disposition home or self-care (01) ==
LOC: LAB 10:35
PROVIDERS: ATTEND Family Medicine
DX: I10 Essential (primary) hypertension (principal); I48.0 Paroxysmal atrial fibrillation; Z79.01 Long term (current) use of anticoagulants; E78.1 Pure hyperglyceridemia; E11.65 Type 2 diabetes mellitus with hyperglycemia; E03.9 Hypothyroidism, unspecified; Z78.0 Asymptomatic menopausal state; K22.70 Barrett's esophagus without dysplasia; K21.9 Gastro-esophageal reflux disease without esophagitis
CPT/HCPCS: 36415; 80053; 80061; 82043; 82570; 83036; 83721; 84443; 85025

== ENCOUNTER 2023-04-18 10:28 | Outpatient (CLI) | payer MEDICARE, OTHER ==
--- NOTE | 2023-04-18 11:04 | Sleep Patient Instructions ---
Sleep Center Visit Summary - Patient Visit Information Reason for Visit: 3-month follow-up for PAP therapy - Patient Instructions Additional Instructions: You were here for follow up of CPAP therapy. You will be continued on CPAP therapy with pressure at 11-14 cmH2O. I will send prescription for mask fitting to your CPAP supplier, they should reach out to you for the fitting. You should follow up with sleep care in 6 months. You may contact us sooner for any questions or concerns. - Clinic Information Contact: [facility] [address] [place] [address] [email or web address] T: [phone]
--- NOTE | 2023-04-18 11:07 | SLEEP CARE CONSULTATION ---
Information from patient questionnaire entered by Erlinda Sosa. I have reviewed and concur with the information entered by Erlinda Sosa. This document represents the service I personally performed and the decisions made by , Sharmaine Thomas ARNP. History of Present Illness Service Date and Time: 04/18/2023 1028 Previous diagnosis: Severe, Obstructive Sleep Apnea-Hypopnea Syndrome AHI: 45 (2022) Reason for follow up: three month (F/U) Equipment type: CPAP (RESMED 11, s/u 08/2022) Equipment obtained from: Other ([facility]; getting supplies) Mask style: Nasal (over the nose) Backup mask available: Yes Last cushion change: 1 month Prior sleep studies: No Type of Sleep Study: Polysomnography (COMPLETED 09/05/22) HPI additional information: SELENE WALSH was diagnosed to have severe, AHI 45, obstructive sleep apnea- hypopnea syndrome and returned today for CPAP therapy three month follow-up. Sleep Study - Results Type of Sleep Study: Polysomnography (COMPLETED 09/05/22) Prior sleep studies: No CPAP Compliance Data - Data Reviewed with Patient Average duration of nightly device use: 8 HRS 4 MINS Compliance rate %: 99 (01/16/23-04/15/23; 90/90 days used) Current pressure setting (cmH2O): 11-14 Average residual AHI: 2.7 Central apnea: 0.1 Obstructive apnea: 1.6 Hypopnea: 0.9 Average large leak: 4.7 L/min Subjective Patient concerns: reports: mask discomfort, mask leak noise, dry mouth, nose, throat. denies: aerophagia, air blowing in eyes, condensation in mask/hose, nasal congestion, epistaxis Observed to snore while using device: No Current pressure setting perceived as: comfortable On therapy, patient: reports: sleeping better, awakening more refreshed, being more awake and alert during the day, more rested overall. denies: drowsiness while driving Initial [place] Sleepiness Scale score: 4 (08/08/22) Current [place] Sleepiness Scale score: 3 (04/18/23) Allergies and Home Medications Known drug allergies: Yes (as listed) Drug allergies reviewed: Yes Home medication list reviewed: Yes (no changes) Allergy and home medication list: Allergies Sulfa (Sulfonamide Antibiotics) Allergy (Verified 04/16/23 09:17) [facility] Review of Systems Review of systems same as previous: Yes (NO CHANGE) Physical Exam Vital signs obtained and entered by: ERLINDA Ramsey MA Blood Pressure: 159/74 (RIGHT ARM) Cuff size: regular Heart Rate: 68 O2 Saturation: 96 Height: 5 ft 4 in Weight: 166 lb 9.6 oz Body Mass Index: 28.5 BMI Classification: Overweight Impression and Plan 1. Obstructive Sleep Apnea-Hypopnea Syndrome, severe, with good treatment compliance and good apnea control. On CPAP therapy, the patient has better sleep quality and is more rested overall. Patient has significant improvement of their sleep apnea and is satisfied with current CPAP therapy. Patient states her mask seems to be causing discomfort at her temples and under her eyes because of the headgear. She is wondering if she could try a different style of mask. I will write for a mask refitting and send it to her CPAP supplier for her to be able to try a different mask. She has no other significant complaints and states she feels she is comfortable with using the machine. We will follow-up with her in 6 months. Patient's apnea severity and rationale for treatment to reduce apnea, improve sleep quality and reduce cardiovascular and cerebrovascular events was reviewed. I also reviewed the benefit of consistent device use of CPAP for hypertension, arrhythmia (Afib), diabetes, gastric reflux, depression and anxiety. 2. Overweight, unspecified. Currently patients BMI is 28.5. Obesity increases the risk of apnea, CPAP pressure requirements and overall health risks especiall y cardiovascular and diabetes. Thus patient is advised to lose weight. * Continue auto CPAP pressure at 11-14 cmH2O * Mask refitting for nasal or nasal pillows mask * Notify me if snoring with mask or feeling that the pressure is too much or too little * Attempt to lose weight * Call this office if any problems using CPAP * Return for follow up in 6 months, or sooner if concerns arise Counseling Topics: Spare mask, Weight loss health impact Prescriptions: Other (mask refitting) Follow up with Sleep Care in: 6 months Visit Type: In Office Time Spent with Patient (minutes): 20 Provider Statement: I spent 100% of the Face to Face Visit with the patient with greater than 50% spent counseling the patient and coordination of care.
[2023-04-18 11:14] VITALS: BP 159/74; O2SAT 96
== END 2023-04-18 10:29 | disposition home or self-care (01) ==
LOC: SC 10:28
PROVIDERS: ATTEND Nurse Practitioner Family
DX: G47.33 Obstructive sleep apnea (adult) (pediatric) (principal)
CPT/HCPCS: 99213; G0463; 99212

== ENCOUNTER 2023-05-14 10:39 | Outpatient (CLI) | payer MEDICARE, OTHER | END 2023-05-14 10:40 | disposition home or self-care (01) | LOC: LAB 10:39 | PROVIDERS: ATTEND Family Medicine | DX: I48.91 Unspecified atrial fibrillation (principal); Z79.01 Long term (current) use of anticoagulants | CPT/HCPCS: 36416; 85610 ==

== ENCOUNTER 2023-05-28 10:12 | Outpatient (CLI) | payer MEDICARE, OTHER | END 2023-05-28 10:13 | disposition home or self-care (01) | LOC: LAB 10:12 | PROVIDERS: ATTEND Family Medicine | DX: I48.91 Unspecified atrial fibrillation (principal); Z79.01 Long term (current) use of anticoagulants | CPT/HCPCS: 36416; 85610 ==

== ENCOUNTER 2023-06-28 10:12 | Outpatient (CLI) | payer MEDICARE, OTHER | END 2023-06-28 10:13 | disposition home or self-care (01) | LOC: LAB 10:12 | PROVIDERS: ATTEND Family Medicine | DX: Z79.01 Long term (current) use of anticoagulants (principal); I48.91 Unspecified atrial fibrillation | CPT/HCPCS: 36416; 85610 ==

== ENCOUNTER 2023-07-25 16:38 | Outpatient (CLI) | payer MEDICARE, OTHER | END 2023-07-25 16:39 | disposition home or self-care (01) | LOC: LAB 16:38 | PROVIDERS: ATTEND Family Medicine | DX: I48.91 Unspecified atrial fibrillation (principal); Z79.01 Long term (current) use of anticoagulants | CPT/HCPCS: 85610 ==

== ENCOUNTER 2023-08-22 13:34 | Outpatient (CLI) | payer MEDICARE, OTHER | END 2023-08-22 13:35 | disposition home or self-care (01) | LOC: LAB 13:34 | PROVIDERS: ATTEND Family Medicine | DX: Z79.01 Long term (current) use of anticoagulants (principal); I48.91 Unspecified atrial fibrillation | CPT/HCPCS: 36416; 85610 ==

== ENCOUNTER 2023-09-06 13:11 | Outpatient (CLI) | payer MEDICARE, OTHER ==
[2023-09-06 14:01] LABS: CALCIUM 9.8 mg/dL (8.5-10.3); CREATININE 1.2 mg/dL (0.6-1.3)
[2023-09-06 20:50] LABS: ESTIMATED AVERAGE GLUCOSE 148 mg/dL (70-100); HEMOGLOBIN A1c% 6.8 % (4.27-6.07)
== END 2023-09-06 13:12 | disposition home or self-care (01) ==
LOC: LAB 13:11
PROVIDERS: ATTEND Family Medicine
DX: E11.9 Type 2 diabetes mellitus without complications (principal)
CPT/HCPCS: 36415; 80048; 82043; 82570; 83036

== ENCOUNTER 2023-09-07 10:48 | Outpatient (CLI) | payer MEDICARE, OTHER ==
[2023-09-07 11:07] LABS: CREATININE,URINE 109.2 mg/dL; MICROALBUM/CREATININE RATIO,UR 62.3 ug/mg (<30.0); MICROALBUMIN,URINE 6.8 mg/dL
== END 2023-09-07 10:49 | disposition home or self-care (01) ==
LOC: LAB.R 10:48
PROVIDERS: ATTEND Family Medicine
DX: E11.9 Type 2 diabetes mellitus without complications (principal)
CPT/HCPCS: 82043; 82570

== ENCOUNTER 2023-10-02 14:01 | Outpatient (CLI) | payer MEDICARE, OTHER ==
--- NOTE | 2023-10-02 14:31 | Sleep Patient Instructions ---
Sleep Center Visit Summary - Patient Visit Information Reason for Visit: 6-month follow-up for CPAP therapy - Patient Instructions Additional Instructions: You were here for follow up of CPAP therapy. You will be continued on CPAP therapy with pressure at 11-14 cmH2O. You should follow up with sleep care in 12 months. You may contact us sooner for any questions or concerns. - Clinic Information Contact: [facility] [address] [place] [id number] [email or web address] T: [phone]
--- NOTE | 2023-10-02 14:36 | SLEEP CARE CONSULTATION ---
Information from patient questionnaire entered by Padma Sosa. I have reviewed and concur with the information entered by Padma Sosa. This document represents the service I personally performed and the decisions made by , Sharmaine Thomas ARNP. History of Present Illness Service Date and Time: 10/02/2023 1401 Previous diagnosis: Severe, Obstructive Sleep Apnea-Hypopnea Syndrome AHI: 45 (09/05/2022) Reason for follow up: six month Equipment type: CPAP (RESMED 11, s/u 08/2022) Equipment obtained from: Other ([facility]; getting supplies) Mask style: Nasal (over the nose) Backup mask available: Yes (old mask) Last cushion change: last week Prior sleep studies: No Type of Sleep Study: Polysomnography (COMPLETED 09/05/22) HPI additional information: SELENE WALSH was diagnosed to have severe, AHI 45, obstructive sleep apnea- hypopnea syndrome and returned today for CPAP therapy six month follow-up. Sleep Study - Results Type of Sleep Study: Polysomnography (COMPLETED 09/05/22) Prior sleep studies: No CPAP Compliance Data - Data Reviewed with Patient Average duration of nightly device use: 8 HRS 10 MINS Compliance rate %: 99 (04/01/23-09/27/23; 178/180 day used) Current pressure setting (cmH2O): 11-14 Average residual AHI: 3.3 Central apnea: 0.1 Obstructive apnea: 2.1 Hypopnea: 0.9 Average large leak: 5.1 L/min Subjective Missed days of use due to: reports: mask issues Patient concerns: reports: mask discomfort (straps dig into side of head), dry mouth, nose, throat (occasional, with allergies this summer). denies: aerophagia, air blowing in eyes, mask leak noise, condensation in mask/hose, nasal congestion, epistaxis Observed to snore while using device: No Current pressure setting perceived as: comfortable On therapy, patient: reports: sleeping better, awakening more refreshed, being more awake and alert during the day, more rested overall. denies: drowsiness while driving Initial [place] Sleepiness Scale score: 4 (08/08/22) Current [place] Sleepiness Scale score: 4 Allergies and Home Medications Known drug allergies: Yes (as listed) Drug allergies reviewed: Yes Home medication list reviewed: Yes (Eliquis) Allergy and home medication list: Allergies Sulfa (Sulfonamide Antibiotics) Allergy (Verified 09/28/23 15:03) Hives Home Medications Medication Instructions Recorded Confirmed Last Taken Type Amlodipine Besylate [Norvasc] See Rx Instructions .ROUTE .COMPLEX 08/08/22 10/02/23 Unknown History Cbd/Thc See Rx Instructions .ROUTE .COMPLEX 08/08/22 10/02/23 Unknown History Cholecalciferol (Vitamin D3) 50 mcg ORAL DAILY 08/08/22 10/02/23 Unknown History [Vitamin D3] Citalopram Hydrobromide 40 mg ORAL DAILY 08/08/22 10/02/23 Unknown History [Citalopram HBr] Glimepiride 1 mg ORAL DAILY 08/08/22 10/02/23 Unknown History Levothyroxine [Synthroid] 25 mcg ORAL DAILY 08/08/22 10/02/23 Unknown History Losartan Potassium 100 mg ORAL DAILY 08/08/22 10/02/23 Unknown History Metoprolol Succinate [Toprol Xl] 50 mg ORAL BID 08/08/22 10/02/23 Unknown History Omeprazole Magnesium 20 mg ORAL DAILY 08/08/22 10/02/23 Unknown History Rosuvastatin Calcium [Crestor] 10 mg ORAL DAILY 08/08/22 10/02/23 Unknown History metFORMIN [Glucophage] 500 mg ORAL BID 08/08/22 10/02/23 Unknown History Flecainide [Tambocar] 50 mg PO DAILY 09/25/22 10/02/23 Unknown History Calcium Carbonate [Calcium] See Rx Instructions .ROUTE .COMPLEX 04/18/23 10/02/23 Unknown History Flecainide [Tambocar] See Rx Instructions .ROUTE .COMPLEX 04/18/23 10/02/23 Unknown History Multivit-Min/Iron/Folic/Lutein See Rx Instructions .ROUTE .COMPLEX 04/18/23 10/02/23 Unknown History [Multivitamin Women 50 Plus Tab] [place]-3S/Dha/Epa/Fish Oil [Fish See Rx Instructions .ROUTE .COMPLEX 04/18/23 0 10/02/23 Unknown History Oil 1,200 mg Softgel] hydroCHLOROthiazide [Hydrodiuril] See Rx Instructions .ROUTE .COMPLEX 04/18/23 10/02/23 Unknown History Eliquis See Rx Instructions .ROUTE .COMPLEX 10/02/23 10/02/23 Unknown History Review of Systems Review of systems same as previous: Yes (no changes) Physical Exam Vital signs obtained and entered by: SHARMAINE LOAIZA Blood Pressure: 141/61 Cuff size: regular (left arm) Heart Rate: 69 O2 Saturation: 96 Height: 5 ft 4 in Weight: 168 lb 3.2 oz Body Mass Index: 28.8 BMI Classification: Overweight Impression and Plan 1. Obstructive Sleep Apnea-Hypopnea Syndrome, severe, with good treatment compliance and good apnea control. On CPAP therapy, the patient has better sleep quality and is more rested overall. She has significant improvement of her sleep apnea and is satisfied with current CPAP therapy. She gets occasional dry mouth when her allergies are active. She also would still like to try a different style of mask but is waiting until she is eligible to change her headgear. She is doing well with no other complaints we will follow-up with her next year. Patient's apnea severity and rationale for treatment to reduce apnea, improve sleep quality and reduce cardiovascular and cerebrovascular event s was reviewed. I also reviewed the benefit of consistent device use of CPAP for hypertension, arrhythmia, diabetes, gastric reflux, depression/anxiety. 2. Overweight, unspecified. Currently patients BMI is 28.8. Obesity increases the risk of apnea, CPAP pressure requirements and overall health risks especially cardiovascular and diabetes. Thus patient is advised to lose weight. * Continue auto CPAP pressure at 11-14 cmH2O * Notify me if snoring with mask or feeling that the pressure is too much or too little * Attempt to lose weight * Call this office if any problems using CPAP * Return for follow up in 12 months, or sooner if concerns arise Counseling Topics: Spare mask, Weight loss health impact Follow up with Sleep Care in: 1 year Visit Type: In Office Time Spent with Patient (minutes): 20 Provider Statement: I spent 100% of the Face to Face Visit with the patient with greater than 50% spent counseling the patient and coordination of care.
[2023-10-02 14:41] VITALS: BP 141/61; O2SAT 96
== END 2023-10-02 14:02 | disposition home or self-care (01) ==
LOC: SC 14:01
PROVIDERS: ATTEND Nurse Practitioner Family
DX: G47.33 Obstructive sleep apnea (adult) (pediatric) (principal); E66.3 Overweight; Z68.28 Body mass index [BMI] 28.0-28.9, adult
CPT/HCPCS: 99213; G0463; 99212